=== PATIENT | female | born 1985 | race Caucasian/White ===

== ENCOUNTER 2016-06-25 17:55 | Emergency (ER) | payer OTHER ==
[2016-06-25 18:08] VITALS: BP 115/74; PULSE 77; TEMP 98.1; BMI 28.7
--- NOTE | 2016-06-25 19:21 | PDOC ---
History of Present Illness - General Chief Complaint: Urinary Problem Stated Complaint: UTI Time Seen by Provider: 06/25/16 19:01 History Source: Patient Exam Limitations: No Limitations - History of Present Illness Initial Comments: 06/25/16 19:45 My chief complaint: painful urination, frequency, and blood when wiping this morning after urinating History of present illness: Patient is a 30-year-old female with a history of asthma and frequent urinary tract infections here today complaining of dysuria, frequency, urgency times one and a half weeks with hematuria noted today. Patient denies any back pain, nausea vomiting or fever. Patient denies any vaginal discharge. 06/25/16 19:47 Timing/Duration: intermittent (for 1 1/2 weeks ) Severity: mild Associated Symptoms: reports: other (dysuria, hematuria, frequency, urgency) Past History - Past Medical History Allergies/Adverse Reactions: Allergies Allergy/AdvReac Type Severity Reaction Status Date / Time No Known Allergies Allergy Verified 06/25/16 18:07 Home Medications: Ambulatory Orders Nitrofurantoin Monohyd/M-Cryst [Macrobid -] 100 mg PO BID #13 capsule 06/25/16 Phenazopyridine HCl [Pyridium] 200 mg PO TID #5 tablet 06/25/16 Asthma: Yes Cancer: No Cardiac Disorders: No Diabetes: No HTN: No Seizures: No Thyroid Disease: No - Reproductive History (#): 1 Para: 1 Cervical CA: No Dysfunctional Uterine Bleeding: No (no vagina bleeding today) Ectopic : No Polycystic Ovaries: No Therapeutic (s) & number: No Uterine Fibroids: Yes - Immunization History Immunization Up to Date: Yes - Psycho/Social/Smoking Cessation Hx Anxiety: No Suicidal Ideation: No Smoking Status: No Smoking History: Never smoked Years of Tobacco Use: 0 Have you smoked in the past 12 months: No Number of Cigarettes Smoked Daily: 0 Cigars Per Day: 0 Information on smoking cessation initiated: No Hx Alcohol Use: No Drug/Substance Use Hx: No Substance Use Type: None Hx Substance Use Treatment: No Review of Systems - Review of Systems Able to Perform ROS?: Yes Constitutional: No: Symptoms Reported HEENTM: No: Symptoms Reported Respiratory: No: Symptoms reported Cardiac (ROS): No: Symptoms Reported ABD/GI: No: Symptoms Reported : Yes: Dysuria (1 1/2 weeks ), Frequency, Hematuria (today ), Urgency Musculoskeletal: No: Symptoms Reported Integumentary: No: Symptoms Reported Neurological: No: Symptoms reported *Physical Exam - Vital Signs Last Vital Signs Temp Pulse Resp BP Pulse Ox 98.1 F 77 18 115/74 98 06/25/16 18:06 06/25/16 18:06 06/25/16 18:06 06/25/16 18:06 06/25/16 18:06 - Physical Exam General Appearance: Yes: Appropriately Dressed Respiratory/Chest: positive: Lungs Clear, Normal Breath Sounds. negative: Chest Tender, Respiratory Distress Cardiovascular: positive: Regular Rhythm, Regular Rate, S1, S2 Gastrointestinal/Abdominal: positive: Normal Bowel Sounds, Soft. negative: Tender, Organomegaly, Distended, Guarding, Rebound, Tenderness, Hepatomegaly, Spleenomegaly Musculoskeletal: negative: CVA Tenderness, CVA Tenderness (R), CVA Tenderness (L ) Integumentary: positive: Normal Color Neurologic: positive: Alert, Responsive Medical Decision Making - Medical Decision Making 06/25/16 19:47 Patient is a 30-year-old female with a history of asthma and frequent urinary tract infections here today complaining of dysuria, frequency, urgency times one and a half weeks with hematuria noted today. Patient denies any back pain, nausea vomiting or fever. Patient denies any vaginal discharge. She is sexually active with her having unprotected sex. R/O UTI UTI PLAN: urinalysis urine C & S urine HCG chlamydia/gonorrhea amplification 06/25/16 20:33 results FOR urinalysis and urine hCG still pending 06/25/16 21:10 Laboratory Tests 06/25/16 19:36 Urine Color Straw Urine Appearance Clear Urine pH 6.0 Ur Specific [place] 1.008 Urine Protein Negative Urine Glucose (UA) Negative Urine Ketones Negative Urine Blood 2+ H Urine Nitrite Negative Urine Bilirubin Negative Urine Urobilinogen Negative Ur Leukocyte Esterase 2+ H Urine RBC 34 Urine WBC 59 Ur Epithelial Cells Rare Urine Bacteria Many Hyaline Casts 12 Urine Mucus Rare 06/25/16 21:11 06/25/16 21:17 macrobid 100 mg po now than bid for 7 days pyridium 200 mg po now than tid for 2 days start on 06/26/16 follow up with primary for repeat urinalysis at end of treatment *DC/Admit/Observation/Transfer Diagnosis at time of Disposition: Urinary tract infection Qualifiers: Urinary tract infection type: acute cystitis Hematuria presence: with hematuria Qualified Code(s): N30.01 - Acute cystitis with hematuria - Discharge Dispostion Disposition: HOME Condition at time of disposition: Stable - Referrals Referrals: Reginaldo Tan [Primary Care Provider] - - Patient Instructions Additional Instructions: Drink A lot of cranberry juice Follow-up with your primary care provider for repeat urine test and it end of treatment Call to lab line in 3 days for results of pending labs Return to emergency room if any fever, nausea or vomiting or back pain Patient voiced understanding of discharge instructions and all questions were answered - Post Discharge Activity
[2016-06-25 20:02] LABS: URINE APPEARANCE CLEAR; URINE BILIRUBIN NEGATIVE (NEGATIVE); URINE COLOR STRAW; URINE GLUCOSE (UA) NEGATIVE (NEGATIVE); URINE KETONE NEGATIVE (NEGATIVE); URINE NITRITE NEGATIVE (NEGATIVE); URINE PROTEIN NEGATIVE (NEGATIVE); URINE UROBILINOGEN NEGATIVE E.U./dl (0.2-1.0)
[2016-06-25 20:39] LABS: URINE BLOOD 2+ (NEGATIVE); URINE LEUK ESTERASE 2+ (NEGATIVE)
[2016-06-25 20:44] LABS: URINE BACTERIA MANY /hpf (NONE SEEN); URINE HYALINE CAST 12 /lpf; URINE MUCUS RARE; URINE RBC 34 /hpf (0-3); URINE WBC 59 /hpf (3-5)
[2016-06-25] MEDS ORDERED: NITROFURANTOIN MACROCRYSTAL 50 MG CAPSULE (FP) PO SCH (21:15)
[2016-06-25] MEDS ORDERED: PHENAZOPYRIDINE HCL 100 MG TABLET (FP) PO ONE (21:16)
[2016-06-25] MEDS ORDERED: PHENAZOPYRIDINE HCL 100 MG TABLET (FP) ONE ×2 (21:29→21:30)
[2016-06-25] MEDS ORDERED: NITROFURANTOIN MACROCRYSTAL 50 MG CAPSULE (FP) ONE (21:29)
== END 2016-06-25 21:37 | disposition home or self-care (01) ==
LOC: JERFT 17:55
DX: N30.01 Acute cystitis with hematuria (principal); J45.909 Unspecified asthma, uncomplicated; Z87.440 Personal history of urinary (tract) infections
CPT/HCPCS: 36415; 81003; 81015; 87086; 87491; 87591; 99281-25

== ENCOUNTER 2017-02-12 22:14 | Observation (INO) | payer OTHER ==
[2017-02-12] MEDS ORDERED: ALBUTEROL SO4 2.5/IPRATROPIUM 0.5 INH SOL 3 ML VIAL.NEB. NEB ONE (22:21)
[2017-02-12] MEDS ORDERED: methylPREDNISolone NA SUCC 125 MG/2 ML VIAL IVPB ONE (22:24)
[2017-02-12] MEDS ORDERED: methylPREDNISolone NA SUCC 125 MG/2 ML VIAL ONE (22:29)
[2017-02-12 22:47] LABS: BASOPHIL 0.5 % (0-2.0); EOSINOPHIL 2.1 % (0-4.5); MCH 25.3 pg (25.7-33.7); MCHC 32.2 g/dl (32.0-36.0); MEAN CELL VOLUME 78.6 fl (80-96); MEAN PLT VOLUME 9.5 fl (7.5-11.1); NEUTROPHILS 69.9 % (42.8-82.8); PLATELET COUNT 258 K/MM3 (134-434); RDW 19.6 % (11.6-15.6); WHITE BLOOD COUNT 8.5 K/mm3 (4.0-10.0)
[2017-02-12 23:14] LABS: ANION GAP 11 (8-16); BILIRUBIN,TOTAL 0.3 mg/dL (0.2-1.0); CALCIUM 9.3 mg/dL (8.5-10.1); CO2 25 mmol/L (21-32); CREATININE 0.7 mg/dL (0.55-1.02); GLUCOSE,RANDOM 82 mg/dL (74-106); SGPT/ALT 20 U/L (12-78); TOT PROT 7.7 g/dl (6.4-8.2)
[2017-02-12] MEDS: ALBUTEROL SO4 2.5/IPRATROPIUM 0.5 INH SOL 3 ML VIAL.NEB. NEB SCH ×2 (23:14→23:57)
--- NOTE | 2017-02-12 23:14 | PDOC ---
Attending Attestation - Resident Resident Name: JesusfloryFede - ED Attending Attestation I have performed the following: I have examined & evaluated the patient, The case was reviewed & discussed with the resident, I agree w/resident's findings & plan, Exceptions are as noted - HPI HPI: 02/12/17 23:10 This is a 31 yo F h/o severe asthma previously requiring intubation Pt presents to the ER with severe asthma exacerbation and cough No fevers - Physicial Exam PE: 02/12/17 23:10 On examination: Pt speaking in 3 word sentences inspiratory and expiratory wheezing - Medical Decision Making 02/12/17 23:12 Will give continuous nebs, solumedrol consider CXR Will monitor closely Discharge on nebs and prednisone 02/12/17 23:14 Laboratory Tests 02/12/17 02/12/17 22:38 22:38 WBC 8.5 Hgb 10.6 L Hct 32.8 Plt Count 258 Neutrophils % 69.9 D Lymphocytes % 21.0 D Serum , Qual Negative Discharge Disposition - Diagnosis Asthma exacerbation - Discharge Dispostion Condition at time of disposition: Stable Last Admission D/C Date: 03/10/14 Admit: Yes
[2017-02-12 23:15] LABS: ALK PHOS 74 U/L (45-117)
[2017-02-12 23:26] LABS: MAGNESIUM 2.2 mg/dL (1.8-2.4); SGOT/AST 25 U/L (15-37)
--- NOTE | 2017-02-12 23:44 | PDOC ---
History of Present Illness - General Chief Complaint: Asthma Stated Complaint: WHEEZING/ASTHMA Time Seen by Provider: 02/12/17 22:21 History Source: Patient Exam Limitations: No Limitations - History of Present Illness Initial Comments: 02/12/17 23:28 The patient is a 31F with a PMH of asthma who presents to the ED with an asthma exacerbation. THe patient states that she's had 5 days of asthma symptoms ( wheezing, coughing) with asthma attacks 3-4 x per day. She has been giving herself neublizing treatments and the symptoms return after 2-3 hours. She takes albuterol, symbicort, singulair, and oral prednisone. She has been intubated for an asthma exacerbation. Her last hospitalization was in August at [facility]. She states that her son had a fever a few days ago and she took him to the doctor. She's complaining of a dry cough and chest tightness. Denies fever/ chills. Past History - Past Medical History Allergies/Adverse Reactions: Allergies Allergy/AdvReac Type Severity Reaction Status Date / Time No Known Allergies Allergy Verified 02/12/17 22:19 Home Medications: Ambulatory Orders Albuterol 0.083% Nebulizer Lila [Ventolin 0.083% Nebulizer Soln -] 1 neb NEB Q6H PRN 02/13/17 Budesonide/Formeterol Fumarate [SYMBICORT 160/4.5mcg -] 2 inh PO BID 02/13/17 Montelukast Na [Singulair -] 10 mg PO HS 02/13/17 Prednisone 02/13/17 Asthma: Yes Cancer: No Cardiac Disorders: No Diabetes: No HTN: No Seizures: No Thyroid Disease: No - Reproductive History (#): 1 Para: 1 Cervical CA: No Dysfunctional Uterine Bleeding: No (no vagina bleeding today) Ectopic : No Polycystic Ovaries: No Therapeutic (s) & number: No Uterine Fibroids: Yes - Immunization History Immunization Up to Date: Yes - Psycho/Social/Smoking Cessation Hx Anxiety: No Suicidal Ideation: No Smoking Status: No Smoking History: Never smoked Years of Tobacco Use: 0 Have you smoked in the past 12 months: No Number of Cigarettes Smoked Daily: 0 Cigars Per Day: 0 Hx Alcohol Use: No Drug/Substance Use Hx: No Substance Use Type: None Hx Substance Use Treatment: No Review of Systems - Review of Systems Able to Perform ROS?: Yes Is the patient limited Hungarian proficient: No Constitutional: No: Chills, Fever Respiratory: Yes: Shortness of Breath, Wheezing, Other (dry cough ). No: Productive cough Cardiac (ROS): Yes: Other (chest pressure). No: Chest Pain, Irregular Heart Rate, Palpitations ABD/GI: No: Constipated, Diarrhea, Nausea, Vomiting : No: Burning, Dysuria Neurological: No: Headache, Numbness, Tingling, Weakness *Physical Exam - Vital Signs Last Vital Signs Temp Pulse Resp BP Pulse Ox 74 18 141/74 100 02/12/17 22:17 02/12/17 22:17 02/12/17 22:17 02/12/17 22:17 - Physical Exam General Appearance: Yes: Nourished, Appropriately Dressed, Apparent Distress HEENT: positive: Other (Speaking in incomplete sentences) Respiratory/Chest: positive: Respiratory Distress, Wheezing (b/l in all lung smith). negative: Accessory Muscle Use, Labored Respiration, Rapid RR Cardiovascular: positive: Regular Rhythm, Regular Rate, S1, S2. negative: Diastolic Murmur, Systolic Murmur Gastrointestinal/Abdominal: positive: Flat, Soft. negative: Tender, Distended, Guarding, Rebound Integumentary: positive: Dry, Warm. negative: Clammy, Diaphoresis Neurologic: positive: Fully Oriented, Alert, Normal Mood/Affect, Motor Strength 5/5 Heart Score/ECG Review - ECG Impressions Comment:: 02/12/17 23:59 Normal SR ED Treatment Course - LABORATORY CBC & Chemistry Diagram: 02/13/17 06:10 02/13/17 06:10 - ADDITIONAL ORDERS Additional order review: Laboratory Results 02/12/17 02/12/17 22:38 22:38 Sodium 141 Potassium 4.4 Chloride 105 Carbon Dioxide 25 Anion Gap 11 BUN 11 D Creatinine 0.7 Creat Clearance w eGFR > 60 Random Glucose 82 D Calcium 9.3 Magnesium 2.2 Total Bilirubin 0.3 D AST 25 ALT 20 Alkaline Phosphatase 74 Total Protein 7.7 Albumin 4.0 Serum , Qual Negative 02/12/17 22:38 RBC 4.17 MCV 78.6 L MCHC 32.2 RDW 19.6 H MPV 9.5 Neutrophils % 69.9 D Lymphocytes % 21.0 D Monocytes % 6.5 Eosinophils % 2.1 Basophils % 0.5 - Medications Given in the ED: ED Medications Discontinued Medications Generic Name Dose Route Start Last Admin Trade Name Fer PRN Reason Stop Dose Admin Albuterol/Ipratropium 1 amp 02/12/17 22:21 02/12/17 22:28 Duoneb - NEB 02/12/17 22:22 1 amp ONCE ONE Administration Methylprednisolone Sodium Succinate 125 mg 02/12/17 22:24 02/12/17 22:32 Solu-Medrol - IVPB 02/12/17 22:25 125 mg ONCE ONE Administration Medical Decision Making - Medical Decision Making 02/13/17 00:00 Patient is a 31F with a PMH of asthma who presented with an asthma exacerbation. She was given continuous nebs, solumetrol, and monitored. She is comfortable. Will discuss observation because her last exacerbation, she left the hospital and then came back and was intubated. She also had symptoms return at home every 3-4 hours. Hospitalist microblogged. 02/13/17 00:04 Patient signed out to Dr. De Leon. *DC/Admit/Observation/Transfer Diagnosis at time of Disposition: Asthma exacerbation - Discharge Dispostion Condition at time of disposition: Stable
[2017-02-13] MEDS ORDERED: ALBUTEROL SO4 0.083% IH SOL 2.5 MG/3 ML VIAL.NEB. NEB PRN (01:53)
[2017-02-13] MEDS ORDERED: BENZOCAINE/MENTH/CETYLPYRD CL 1 EACH LOZENGE MM PRN (02:19)
--- NOTE | 2017-02-13 02:19 | HP ---
CHIEF COMPLAINT: Asthma exacerbation PCP: HISTORY OF PRESENT ILLNESS: The patient is a 31 yo f w/ PMH asthma (multiple hospitalizations, intubated once) comes in complaining of wheezing and cough for the past 5 days. The patient was in her usual state of health until 5 days ago when she began to have recurrent episodes of wheezing and cough which were only temporarily relived by her rescue inhaler. The cough is nonproductive. She would use her inhaler 3-4 times per day during this time. She states she takes singulair and prednisone daily and her symptoms are usually controlled. She does not take her symbicort regularly. The patient states that her son had a fever recently, but no other symptoms. She has been to the ER 3 other times this year for similar symptoms. Patient denies waking up at night with asthma symptoms. Peak flow after transfer to floor was 250. Patient denies chest pain, abdominal pain, fever or chills. ER course was notable for: (1) solumedrol 125 (2) duonebs (3) Recent Travel: none PAST MEDICAL HISTORY: -see above PAST SURGICAL HISTORY: -2 Cesarian sections. Social History: Smoking: denies Alcohol: socially Drugs: denies Family History: HTN in father, Breast cancer in 2 first cousins Allergies No Known Allergies Allergy (Verified 02/12/17 22:19) HOME MEDICATIONS: Home Medications Medication Instructions Recorded Nitrofurantoin Monohyd/M-Cryst 100 mg PO BID #13 capsule 06/25/16 [Macrobid -] Phenazopyridine HCl [Pyridium] 200 mg PO TID #5 tablet 06/25/16 REVIEW OF SYSTEMS CONSTITUTIONAL: Absent: fever, chills, diaphoresis, generalized weakness, malaise, loss of appetite, weight change HEENT: Absent: rhinorrhea, nasal congestion, throat pain, throat swelling, difficulty swallowing, mouth swelling, ear pain, eye pain, visual changes CARDIOVASCULAR: Absent: chest pain, syncope, palpitations, irregular heart rate, lightheadedness , peripheral edema RESPIRATORY: Absent: orthopnea, wheezing, stridor, hemoptysis GASTROINTESTINAL: Absent: abdominal pain, abdominal distension, nausea, vomiting, diarrhea, constipation, melena, hematochezia GENITOURINARY: Absent: dysuria, frequency, urgency, hesitancy, hematuria, flank pain, genital pain MUSCULOSKELETAL: Absent: myalgia, arthralgia, joint swelling, back pain, neck pain SKIN: Absent: rash, itching, pallor HEMATOLOGIC/IMMUNOLOGIC: Absent: easy bleeding, easy bruising, lymphadenopathy, frequent infections ENDOCRINE: Absent: unexplained weight gain, unexplained weight loss, heat intolerance, cold intolerance NEUROLOGIC: Absent: headache, focal weakness or paresthesias, dizziness, unsteady gait, seizure, mental status changes, bladder or bowel incontinence PSYCHIATRIC: Absent: anxiety, depression, suicidal or homicidal ideation, hallucinations. PHYSICAL EXAMINATION Vital Signs - 24 hr 02/13/17 01:48 Pulse Rate [ 68 Apical] Blood Pressure 140/86 [Left Arm] GENERAL: Awake, alert, and fully oriented, in no acute distress. HEAD: Normal with no signs of trauma. EYES: extraocular movements intact, sclera anicteric, conjunctiva clear. No lid lag. NECK: Normal range of motion, supple without lymphadenopathy, JVD, or masses. LUNGS: Breath sounds equal, clear to auscultation bilaterally. No wheezes, and no crackles. No accessory muscle use. HEART: Regular rate and rhythm, normal S1 and S2 without murmur, rub or gallop. ABDOMEN: Soft, nontender, not distended, normoactive bowel sounds, no guarding, no rebound. MUSCULOSKELETAL: Normal range of motion at all joints. No bony deformities or tenderness. No CVA tenderness. UPPER EXTREMITIES: 2+ pulses, warm, well-perfused. No cyanosis. No clubbing. No peripheral edema. LOWER EXTREMITIES: 2+ pulses, warm, well-perfused. No calf tenderness. No peripheral edema. NEUROLOGICAL: Cranial nerves II-X intact. Normal speech. Gait not observed. PSYCHIATRIC: Cooperative. Good eye contact. Appropriate mood and affect. SKIN: Warm, dry, normal turgor, no rashes or lesions noted, normal capillary refill. ASSESSMENT/PLAN: 31 yo f w/ PMH asthma with multiple admissions for exacerbation presents to the ED c/o wheezing and cough for 5 days. #acute asthma exacerbation -patient dramatically improved after IV steroids and duonebs -albuterol Q6H standing -singulair 10mg HS -symbicort 160/4.5 BID -prednisone PO 40mg daily -admit to med-surg -cepacol lozenge Q2H PRN cough -AM CBC, CMP, MAG, PHOS -CXR (by by read) without any consolidations, opacities or effusions -monitor for worsening respiratory status #FEN -no indication for fluids at this time -monitor lytes -regular diet #Prophy -SCDs -no GI prophy indicated at this time #dispo -admitted to med-surg for treatment of acute asthma exacerbation Problem List - Problem (1) Asthma exacerbation Code(s): J45.901 - UNSPECIFIED ASTHMA WITH (ACUTE) EXACERBATION (2) Cough Code(s): R05 - COUGH Visit type - Emergency Visit Emergency Visit: Yes ED Registration Date: 02/13/17 Care time: The patient presented to the Emergency Department on the above date and was hospitalized for further evaluation of their emergent condition. - New Patient This patient is new to me today: Yes Date on this admission: 02/13/17 - Critical Care Critical Care patient: No
[2017-02-13 02:21] VITALS: BMI 27.6
[2017-02-13] MEDS: BENZOCAINE/MENTH/CETYLPYRD CL 1 EACH LOZENGE MM PRN ×3 (02:46→21:52)
--- NOTE | 2017-02-13 05:34 | PN ---
Teaching Attending Note Name of Resident: Colton Arellano ATTENDING PHYSICIAN STATEMENT I saw and evaluated the patient. Chart, data, imaging reviewed. I reviewed the resident's note and discussed the case with the resident. I agree with the resident's findings and plan as documented with modifications below. SUBJECTIVE: 31F with a PMH of severe persistent asthma, with hx of intubation in 08/2015, 3 ER visits for asthma this year, c/o shortness of breath, wheezing, and nonproductive cough for the last 5 days. She states that she has not been taking her symbicort regularly and has been skipping doses. Pt states that she takes an unknown dose of prednisone for the last several months. Has been using daily inhaled albuterol. Unknown baseline peakflow. Denied any fevers or sick contacts. Pt s/p solumedrol and nebulizers in ER and feels much better. OBJECTIVE: Last Vital Signs Temp Pulse Resp BP Pulse Ox 98 F 73 20 129/73 100 02/13/17 02:16 02/13/17 02:16 02/13/17 02:16 02/13/17 02:02/13/17 02:13 General - NAD , aaox3 , comfortable, speaks in full sentences, nonproductive cough HEENT - no scleral icterus, no pharyngeal erythema Neck -supple, no masses CV- s1+s2+ RRR Chest - CTA b/l, no wheezing, rales, rhonchi Neuro- follows commands, answers questions answers questions and follows commands Abnormal Lab Results 02/12/17 22:38 Hgb 10.6 L MCV 78.6 L MCH 25.3 L RDW 19.6 H CXR -no consolidations seen ASSESSMENT AND PLAN: #Asthma exacerbation- much improved after methylprednisone and nebulizers -serial peak flow meter readings -prednisone 40mg daily -call PCP and find out home prednisone dose -duonebs q6hrs -symbicort inhaler bid -respiratory watch -supplemental 02 -counseled on proper medication use #Anemia -microcytic -ferritin -iron saturation, TIMC -vitamin b12 #Diet -regular diet #DVT ppx -SCDs
[2017-02-13] MEDS: ALBUTEROL SO4 0.083% IH SOL 2.5 MG/3 ML VIAL.NEB. NEB SCH ×4 (07:04→23:47)
[2017-02-13 07:30] LABS: BASOPHIL 0.1 % (0-2.0); MCH 25.4 pg (25.7-33.7); MCHC 32.4 g/dl (32.0-36.0); MEAN CELL VOLUME 78.5 fl (80-96); MEAN PLT VOLUME 10.2 fl (7.5-11.1); NEUTROPHILS 94.7 % (42.8-82.8); PLATELET COUNT 243 K/MM3 (134-434); RDW 20.3 % (11.6-15.6); WHITE BLOOD COUNT 8.5 K/mm3 (4.0-10.0)
[2017-02-13 08:00] LABS: BILIRUBIN,TOTAL 0.3 mg/dL (0.2-1.0); CREATININE 0.7 mg/dL (0.55-1.02); PHOSPHOROUS 2.7 mg/dL (2.5-4.9); SGOT/AST 15 U/L (15-37); SGPT/ALT 18 U/L (12-78); TOT PROT 7.6 g/dl (6.4-8.2)
[2017-02-13 08:03] LABS: ALBUMIN 3.7 g/dl (3.4-5.0); ALK PHOS 65 U/L (45-117); ANION GAP 12 (8-16); CALCIUM 8.8 mg/dL (8.5-10.1); CO2 23 mmol/L (21-32); FERRITIN 4.326 ng/ml (6.9-282.5); GLUCOSE,RANDOM 159 mg/dL (74-106); MAGNESIUM 2.3 mg/dL (1.8-2.4)
[2017-02-13] MEDS ORDERED: methylPREDNISolone NA SUCC 40 MG/1 ML VIAL IVPB SCH (10:00)
[2017-02-13] MEDS ORDERED: BUDESONIDE/FORMETEROL FUMARATE 80/4.5 mcg INHALER IH SCH (10:00)
[2017-02-13] MEDS: BUDESONIDE/FORMETEROL FUMARATE 160/4.5 mcg INHALER IH SCH ×2 (10:42→21:51)
--- NOTE | 2017-02-13 17:52 | HOSP ---
Subjective - Review of Symptoms Subjective: Patient seen and examined. She still feels chest and throat tightness. Her voice is strained. Physical Examination Vital Signs: Vital Signs Temperature 98.5 F 02/13/17 13:47 Pulse Rate 82 02/13/17 13:47 Respiratory Rate 18 02/13/17 13:47 Blood Pressure 110/43 02/13/17 13:47 O2 Sat by Pulse Oximetry (%) 99 02/13/17 14:12 Constitutional: Yes: Calm HENT: Yes: WNL Cardiovascular: Yes: Regular Rate and Rhythm, S1, S2 Respiratory: Yes: Cough, Other (scattered rhonchi, no wheezing, no sob,) Gastrointestinal: Yes: Normal Bowel Sounds, Soft Extremities: Yes: WNL Edema: No Neurological: Yes: Alert, Oriented Labs: CBC, BMP 02/13/17 06:10 02/13/17 06:10 Hospitalist Encounter Assessment: Assessment: 31 year old female admitted with asthma exacerbation Plan: 1. Acute asthma exacerbation - Continued chest and neck tightness - Start solumedrol 40mg q8 x24 hrs - Start Azithromycin 500mg daily x5 days - Reassess in AM, possibly dc with medrol taper and abx
[2017-02-13] MEDS: methylPREDNISolone NA SUCC 40 MG/1 ML VIAL IVPB SCH (18:46)
[2017-02-13] MEDS ORDERED: PT OWN MED DRAWER 7, Y5N ONE (21:10)
[2017-02-13] MEDS ORDERED: guaiFENesin 200 MG/10 ML 10 ML UNIT-DOSE CUPS PO PRN (21:39)
[2017-02-13] MEDS ORDERED: MONTELUKAST NA 10 MG TABLET PO SCH ×2 (22:00)
[2017-02-13] MEDS ORDERED: BUDESONIDE/FORMETEROL FUMARATE 160/4.5 mcg INHALER IH SCH (22:00)
[2017-02-13] MEDS: AZITHROMYCIN 250 MG TABLET PO SCH (22:27)
[2017-02-14] MEDS: methylPREDNISolone NA SUCC 40 MG/1 ML VIAL IVPB SCH ×2 (01:26→10:25)
[2017-02-14] MEDS: ALBUTEROL SO4 0.083% IH SOL 2.5 MG/3 ML VIAL.NEB. NEB SCH (06:01)
[2017-02-14 06:07] LABS: SERUM IRON 19 ug/dL (27-159); TOTAL IRON BINDING CAPACITY 424 ug/dL (250-450); UIBC 405 ug/dL (131-425)
[2017-02-14] MEDS: AZITHROMYCIN 250 MG TABLET PO SCH (10:24)
[2017-02-14] MEDS: BUDESONIDE/FORMETEROL FUMARATE 160/4.5 mcg INHALER IH SCH (10:24)
--- NOTE | 2017-02-14 12:06 | CON.PULM ---
Consult Consult Specialty:: PULMONARY Referred by:: TRACIE Schulte Reason for Consultation:: asthma exacerbation - History of Present Illness Chief Complaint: shortness of breath History of Present Illness: 31yo female with h/o asthma who was admitted with worsening shortness of breath without improvement with nebulizers x 5 days. She reports wheezing, chest tightness with a nonproductive cough. Reports compliance with her inhaler regimen. She was diagnosed with asthma as a child, has been hospitalized multiple times, most recently last year and has been intubated once. She does not know her best peak flow. Her triggers include dust, cleaning chemicals, exercise, pets. Has been allergy tested. Maintained on symbicort, singulair, albuterol at home. Has not been on prednisone since August. - History Source History Provided By: Patient, Medical Record Limitations to Obtaining History: No Limitations - Past Medical History Pulmonary: Yes: Asthma ...LMP: 02/13/17 - Past Surgical History Past Surgical History: Yes: - Alcohol/Substance Use Hx Alcohol Use: No - Smoking History Smoking history: Never smoked Have you smoked in the past 12 months: No Aproximately how many cigarettes per day: 0 - Social History ADL: Independent History of Recent Travel: No Home Medications - Allergies Allergies/Adverse Reactions: Allergies Allergy/AdvReac Type Severity Reaction Status Date / Time No Known Allergies Allergy Verified 02/12/17 22:19 - Home Medications Home Medications: Ambulatory Orders Albuterol 0.083% Nebulizer Lila [Ventolin 0.083% Nebulizer Soln -] 1 neb NEB Q6H PRN 02/13/17 Budesonide/Formeterol Fumarate [SYMBICORT 160/4.5mcg -] 2 inh PO BID 02/13/17 Montelukast Na [Singulair -] 10 mg PO HS 02/13/17 Prednisone 02/13/17 Review of Systems - Review of Systems Constitutional: denies: Chills, Fever Eyes: denies: Recent Change in Vision HENT: denies: Nasal Congestion, Throat Pain Neck: denies: Stiffness, Tenderness Cardiovascular: reports: Shortness of Breath. denies: Chest Pain, Edema, Palpitations Respiratory: reports: Cough, Exercise Intolerance, SOB, SOB on Exertion, Wheezing. denies: Hemoptysis Gastrointestinal: denies: Abdominal Pain, Nausea, Vomiting Genitourinary: denies: Dysuria, Hematuria Neurological: denies: Dizziness, Headache Physical Exam Vital Sings: Vital Signs Temperature 98.2 F 02/14/17 10:21 Pulse Rate 79 02/14/17 10:21 Respiratory Rate 18 02/14/17 10:21 Blood Pressure 111/64 02/14/17 10:21 O2 Sat by Pulse Oximetry (%) 96 02/14/17 09:58 Constitutional: Yes: Calm Eyes: Yes: Conjunctiva Clear, EOM Intact HENT: Yes: Atraumatic, Normocephalic Neck: Yes: Supple, Trachea Midline Cardiovascular: Yes: Regular Rate and Rhythm Respiratory: Yes: Regular, CTA Bilaterally. No: Wheezes ...Clubbing: No Gastrointestinal: Yes: Normal Bowel Sounds, Soft. No: Tenderness Edema: No Neurological: Yes: Alert, Oriented Labs: CBC, BMP 02/13/17 06:10 02/13/17 06:10 Imaging - Results Chest X-ray: Report Reviewed, Image Reviewed (no infiltrates) Problem List - Problems (1) Asthma exacerbation Code(s): J45.901 - UNSPECIFIED ASTHMA WITH (ACUTE) EXACERBATION Assessment/Plan - can change steroids to PO prednisone 40mg daily x 5 more days - can discharge on spiriva daily in addition to her regimen of symbicort 160/ 4.5mcg 2puffs BID, singulair nightly and albuterol as needed - instructed her to monitor her peak flow even when well to document her best - should get CBC with diff, IgE level and allergy testing as outpt when off steroids to see if she will qualify for additional treatment if not improved on above - outpt PFTs - can be discharged from pulmonary standpoint Thank you for this consult Gagandeep [place] MD
--- NOTE | 2017-02-14 12:44 | DS ---
Physical Exam: SUBJECTIVE: Patient seen and examined at the bedside. She denies shortness of breath or chest pain. She is able to speak in full sentences without any shortness of breath. States she feels well and denies any discomfort. She states she does not have a precipitate washer outpatient, and requesting a referral here. OBJECTIVE: No wheezing on exam, comfortable in on room Pre and post oxygen stable with ambulation, no need for home oxygen Vital Signs Period Temp Pulse Resp BP Sys/Powell Pulse Ox Last 24 Hr 97.5 F-98.5 F 60-94 18-20 107-127/43-73 96-100 PHYSICAL EXAM GENERAL: The patient is awake, alert, and fully oriented, in no acute distress. HEAD: Normal with no signs of trauma. EYES: PERRL, extraocular movements intact, sclera anicteric, conjunctiva clear. ENT: Ears normal, nares patent, oropharynx clear without exudates, moist mucous membranes. NECK: Trachea midline, full range of motion, supple. LUNGS: Breath sounds equal, clear to auscultation bilaterally, no wheezes, no crackles, no accessory muscle use. HEART: Regular rate and rhythm, S1, S2 without murmur, rub or gallop. ABDOMEN: Soft, nontender, nondistended, normoactive bowel sounds, no guarding, no rebound, no hepatosplenomegaly, no masses. EXTREMITIES: 2+ pulses, warm, well-perfused, no edema. NEUROLOGICAL: Normal speech, gait not observed. PSYCH: Normal mood, normal affect. SKIN: Warm, dry, normal turgor, no rashes or lesions noted. LABS Laboratory Results - last 24 hr 02/13/17 10:00 Iron 19 L TIBC 424 Iron Saturation 4 L HOSPITAL COURSE: Date of Admission:02/13/17 Date of Discharge: 02/14/17 Patient is a 31 yo female with a significant past medical history of asthma with multiple hospitalization and intubation in the past. She came in to the hospital complaining of wheezing and cough for the past 5 days. She is under observation for exacerbation of asthma. Pulmonary: Asthma exacerbation - acute on chronic A/P: Patient seen by precipitate washer prior to d/c, agrees to follow up with Dr. Woods outpatient She has clinically improved, denies any shortness of breath, able to ambulate without any respiratory distress or shortness of breath. She is able to speak in full sentences. Will discharge with Prednisone 40mg daily for 5 more days Spiriva daily in addition to symbicort 160/4.5mcg 2puffs twice per day Singulair nightly and albuterol as needed Monitor peak flow Pulmonary follow up within one week, patient in agreement. Hematology: Iron deficiency anemia A/P: started on Ferrous sulfate 325 daily outpatient follow up with PCP Disposition: Discharge home without pulmonary follow up. Full code. Minutes to complete discharge: 60 Discharge Summary Reason For Visit: EXACERBATION OF ASTHMA Current Active Problems Asthma exacerbation (Acute) Condition: Stable - Instructions Diet, Activity, Other Instructions: Ms Ulloa: You were hospitalized for asthma exacerbation. You will be sent home with the following: Prednisone 40mg daily for 5 more days Spiriva daily in addition to symbicort 160/4.5mcg 2puffs twice per day Singulair nightly and albuterol as needed Monitor your peak flow even when you are well to document your best Please see your primary care physician so that you can get lab work (CBC, IgE and allerty testing when you are off the steriods) to see if you quality for additional treatment If you have any questions, please call me. Amarilys Schulte NP [facility] @ [facility] [phone] Referrals: Neelima Noonan NP [Non Staff, Medical] - Kendrick Woods MD [Staff Physician] - Disposition: HOME - Home Medications Comprehensive Discharge Medication List: Ambulatory Orders Albuterol 0.083% Nebulizer Lila [Ventolin 0.083% Nebulizer Soln -] 1 neb NEB Q6H PRN 02/13/17 Budesonide/Formeterol Fumarate [SYMBICORT 160/4.5mcg -] 2 inh PO BID 02/13/17 Montelukast Na [Singulair -] 10 mg PO HS 02/13/17 Prednisone 02/13/17 This patient is new to me today: Yes Date on this admission: 02/14/17 Emergency Visit: Yes ED Registration Date: 02/13/17 Care time: The patient presented to the Emergency Department on the above date and was hospitalized for further evaluation of their emergent condition. Critical Care patient: No - Discharge Referral Referred to [facility] No
[2017-02-14] MEDS ORDERED: FERROUS SO4 325 MG TABLET (FP) PO SCH (12:45)
[2017-02-14 14:01] VITALS: BP 107/62; PULSE 62; TEMP 98.4
--- NOTE | 2017-02-14 16:35 | EKG ---
Test Reason : Blood Pressure : / mmHG Vent. Rate : 071 BPM Atrial Rate : 071 BPM P-R Int : 142 ms QRS Dur : 090 ms QT Int : 406 ms P-R-T Axes : 047 056 037 degrees QTc Int : 441 ms NORMAL SINUS RHYTHM RSR' OR QR PATTERN IN V1 SUGGESTS RIGHT VENTRICULAR CONDUCTION DELAY BORDERLINE ECG NO PREVIOUS ECGS AVAILABLE Confirmed by SUKH RUELAS MD ([id number]) on 02/14/2017 4:35:03 PM Referred By: Confirmed By:SUKH RUELAS MD
[2017-02-15 08:10] LABS: TRANSFERRIN 385 mg/dL (200-370)
== END 2017-02-14 14:42 | disposition home or self-care (01) ==
LOC: JER 22:14 → JERBED 02-13 00:38 → UNDOADMOB 02-13 00:38 → OBSVTOIN 02-13 01:53 → JERBED 02-13 01:53 → UNDOADMOB 02-13 01:53 → INTOOBSV 02-13 01:53 → JERBED 02-13 01:57 → J7W 02-13 01:57 → OBSVTOIN 02-14 01:53 → INTOOBSV 02-14 01:53
PROVIDERS: ADMIT Internal Medicine; ATTEND Nurse Practitioner Family
PROC: 3E0333Z Introduction of Anti-inflammatory into Peripheral Vein, Percutaneous Approach (ICD-10-PCS; principal; 2017-02-12)
PROC: 3E0F7GC Introduction of Other Therapeutic Substance into Respiratory Tract, Via Natural or Artificial Opening (ICD-10-PCS; 2017-02-12)
PROC: 3E0F7GC Introduction of Other Therapeutic Substance into Respiratory Tract, Via Natural or Artificial Opening (ICD-10-PCS; 2017-02-12)
PROC: 3E0F7GC Introduction of Other Therapeutic Substance into Respiratory Tract, Via Natural or Artificial Opening (ICD-10-PCS; 2017-02-13)
DX: J45.901 Unspecified asthma with (acute) exacerbation (principal); D50.9 Iron deficiency anemia, unspecified
CPT/HCPCS: 36415; 71020-TC; 80053; 82607; 82728; 83540; 83550; 83735; 84100; 84466; 84703; 85025; 93005; 93010; 94640; 94761; 99284-25; G0378

== ENCOUNTER 2017-04-20 00:19 | Emergency (ER) | payer OTHER ==
[2017-04-20] MEDS ORDERED: predniSONE 20 MG TABLET (UD) PO ONE (01:09)
[2017-04-20] MEDS ORDERED: SILVER SULFADIAZINE 1% TOP CREAM 50 GM JAR TP ONE ×2 (01:09→01:15)
[2017-04-20] MEDS ORDERED: ALBUTEROL SO4 0.083% IH SOL 2.5 MG/3 ML VIAL.NEB. NEB ONE (01:09)
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
[2017-04-20] MEDS ORDERED: predniSONE 10 MG TABLET (UD) ONE (01:15)
[2017-04-20 01:53] VITALS: BP 115/56; PULSE 82; TEMP 98.7; BMI 30.4
== END 2017-04-20 02:03 | disposition home or self-care (01) ==
LOC: JER 00:19
PROC: 2W2FX4Z Dressing of Left Hand using Bandage (ICD-10-PCS; principal; 2017-04-20)
PROC: 3E0F7GC Introduction of Other Therapeutic Substance into Respiratory Tract, Via Natural or Artificial Opening (ICD-10-PCS; 2017-04-20)
DX: J45.901 Unspecified asthma with (acute) exacerbation (principal); T23.102A Burn of first degree of left hand, unspecified site, initial encounter; X11.8XXA Contact with other hot tap-water, initial encounter; Y93.G3 Activity, cooking and baking; Y92.030 Kitchen in apartment as the place of occurrence of the external cause
CPT/HCPCS: 99281-25

== ENCOUNTER 2017-11-16 01:50 | Emergency (ER) | payer SELFPAY ==
[2017-11-16 02:03] VITALS: BP 127/58; PULSE 93; TEMP 98.3; BMI 22.0
[2017-11-16] MEDS ORDERED: ACETAMINOPHEN 325 MG TABLET (FP) PO ONE (02:46)
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
[2017-11-16] MEDS ORDERED: ACETAMINOPHEN 325 MG TABLET (FP) ONE (02:51)
[2017-11-16] MEDS ORDERED: DIPHTH,PERTUSS(ACELL),TET VAC 0.5 ML VIAL IM ONE (02:51)
== END 2017-11-16 03:43 | disposition home or self-care (01) ==
LOC: JER 01:50
PROC: 3E0234Z Introduction of Serum, Toxoid and Vaccine into Muscle, Percutaneous Approach (ICD-10-PCS; principal; 2017-11-16)
DX: S09.90XA Unspecified injury of head, initial encounter (principal); Y04.2XXA Assault by strike against or bumped into by another person, initial encounter; Y93.89 Activity, other specified; Y92.9 Unspecified place or not applicable; Z33.1 Pregnant state, incidental
CPT/HCPCS: 84703; 99281-25

== ENCOUNTER 2018-07-21 05:45 | Inpatient (IN) | payer OTHER ==
[2018-07-21] MEDS: ELECTROLYTE-148 SOLN 1,000 ML IV SCH (06:45)
[2018-07-21] MEDS ORDERED: CITRIC ACID/SODIUM CITRATE 30 ML UNIT-DOSE CUP PO ONE (06:48)
[2018-07-21 06:52] VITALS: BMI 30.7
--- NOTE | 2018-07-21 06:55 | HP ---
Past Medical History - Primary Care Physician PCP:: Louie Hogan - Admission Chief Complaint: 39 weeks, previous c/s , request of repeat c/s History of Present Illness: 32 yo f 39 weeks, with 2 previous c/s, requesting repeat c/s, FHR cat 1 , no contraction, cx clp, vx-3 , mi, risks of repeat c/s has discussed with patient aware risks of bleeding, injury to bowel, bladder, surrounding tissue, infection, anesthesia risks, declined BTL, risks associated with future discussed as well History Source: Patient Limitations to Obtaining History: No Limitations - Past Medical History Pulmonary: Yes: Asthma ...: 3 ...Para: 2 ...Term: 2 ... Weeks Gestation by Dates: 39 ...EDC by [facility]: 07/27/18 - Past Surgical History Past Surgical History: Yes: Hx Myomectomy: No Hx Transabdominal Cerclage: No - Smoking History Smoking history: Never smoked Have you smoked in the past 12 months: No Aproximately how many cigarettes per day: 0 - Alcohol/Substance Use Hx Alcohol Use: No - Social History ADL: Independent History of Recent Travel: No Home Medications - Allergies Allergies/Adverse Reactions: Allergies Allergy/AdvReac Type Severity Reaction Status Date / Time No Known Allergies Allergy Verified 11/16/17 01:54 - Home Medications Home Medications: Ambulatory Orders Montelukast Na [Singulair -] 10 mg PO HS 02/13/17 Albuterol 0.083% Nebulizer Lila [Ventolin 0.083% Nebulizer Soln -] 1 amp NEB Q4H PRN #0 amp 02/14/17 Budesonide/Formeterol Fumarate [SYMBICORT 160/4.5mcg -] 2 puff IH BID inhaler 02/14/17 Ferrous Sulfate [Feosol] 325 mg PO DAILY #30 tab 02/14/17 Tiotropium [place] [Spiriva] 1 inh PO DAILY #1 inhaler 02/14/17 Review of Systems - Review of Systems Constitutional: reports: No Symptoms Eyes: reports: No Symptoms HENT: reports: No Symptoms Neck: reports: No Symptoms Cardiovascular: reports: No Symptoms Respiratory: reports: No Symptoms Gastrointestinal: reports: No Symptoms Genitourinary: reports: Frequency Breasts: reports: No Symptoms Reported Musculoskeletal: reports: Back Pain, Joint Pain Integumentary: reports: No Symptoms Neurological: reports: No Symptoms Endocrine: reports: No Symptoms Hematology/Lymphatic: reports: No Symptoms Physical Exam - Maternity Constitutional: Yes: Well Nourished, No Distress, Calm Eyes: Yes: WNL, Conjunctiva Clear, EOM Intact HENT: Yes: WNL, Atraumatic, Normocephalic Neck: Yes: WNL, Supple, Trachea Midline Cardiovascular: Yes: WNL, Regular Rate and Rhythm Breast(s): Yes: WNL - Abdominal Exam/OB Fundal Height: 40 Number of Fetuses: Single Presentation: Vertex Contractions: No Intensity: Unaware Monitor Mode: External Heart Rate (range): 142 Heart Rate Location: [facility] Category: I Accelerations: Uniform Decelerations: None - Vaginal Exam/OB Vaginal Bleediing: No Speculum Exam: No Dilatation (cm): 0 Effacement (%): 0 Amniotic Membrane Status: Intact Presentation: Vertex/Position Station: -3 - Physical Exam Musculoskeletal: Yes: WNL Extremities: Yes: WNL Edema: LLE: Trace, RLE: Trace Deep Tendon Reflex Grade: Normal +2 ...Motor Strength: WNL Psychiatric: Yes: WNL Hemorrhage Risk Assessment - Risk Factors Medium Risk Factors: Yes: Prior , uterine surgery,or multiple laparotomies Risk Score: 1 Risk Level: Medium Risk Problem List - Problems (1) with 39 completed weeks gestation Code(s): Z3A.39 - 39 WEEKS GESTATION OF (2) Previous section complicating Code(s): O34.219 - MATERNAL CARE FOR UNSP TYPE SCAR FROM PREVIOUS DEL Assessment/Plan repeat c/s , risks discussed
[2018-07-21] MEDS: DEXTROSE 5%-LACTATED RINGERS 1,000 ML IV SCH (07:00)
[2018-07-21] MEDS ORDERED: morphine SULFATE/Preservative Free 0.5 MG/ML (1cc Syringe) ONE (07:16)
[2018-07-21] MEDS ORDERED: METHYLERGONOVINE MALEATE 0.2 MG/1 ML AMP IM PRN (07:40)
[2018-07-21] MEDS ORDERED: BENZOCAINE 28 GM HEMORRHOIDAL OINTMENT PR PRN (07:40)
[2018-07-21] MEDS ORDERED: BENZOCAINE 20% 57 GM BOTTLE TP PRN (07:40)
[2018-07-21] MEDS ORDERED: diphenhydrAMINE HCL 25 MG CAPSULE (FP) PO PRN (07:40)
[2018-07-21] MEDS ORDERED: WITCH HAZEL 50% (TUCKS) 40 PAD/JAR PAD TP PRN (07:40)
[2018-07-21] MEDS ORDERED: OXYTOCIN 20 UNITS in 0.9% NS 20 UNIT/1,000 ML INFUS.BAG IV SCH (07:45)
[2018-07-21] MEDS: CEFAZOLIN 1 GM/D5W 1 GM/50 ML BAG IVPB SCH ×2 (08:05→17:08)
[2018-07-21] MEDS ORDERED: ePHEDrine SULFATE 50 MG/1 ML AMPULE ONE (08:07)
[2018-07-21] MEDS ORDERED: KETOROLAC TROMETHAMINE 30 MG/1 ML VIAL ONE (08:16)
[2018-07-21] MEDS ORDERED: OXYTOCIN 10 UNITS/ML VIAL ONE (08:16)
[2018-07-21] MEDS ORDERED: ceFAZolin SODIUM 1 GM VIAL ONE (08:16)
[2018-07-21] MEDS ORDERED: SODIUM CHLORIDE 0.9% P/F 10 ML VIAL IJ ONE (08:16)
--- NOTE | 2018-07-21 09:09 | SURG ---
Surgery Site Auditor Note Site Auditor: Gabby Moore PA-C Date of Service: 07/21/18 Diagnosis: 39 weeks gestation Procedure: Repeat I was present for the entirety of the operative procedure. For further detail, please refer to operative report. Visit type - Case Type Case Type: Scheduled - Emergency Emergency Visit: No - New patient This patient is new to me today: Yes Date on this admission: 07/21/18
[2018-07-21] MEDS: BUDESONIDE/FORMETEROL FUMARATE 160/4.5 mcg INHALER IH SCH ×2 (10:00→21:56)
[2018-07-21] MEDS ORDERED: diphenhydrAMINE HCL 12.5 MG/5 ML UNIT-DOSE CUPS PO PRN (11:20)
[2018-07-21] MEDS: IBUPROFEN 800 MG/8 ML IJ IVPB PRN (18:19)
[2018-07-21] MEDS: MONTELUKAST NA 10 MG TABLET PO SCH (21:55)
[2018-07-22] MEDS: IBUPROFEN 800 MG/8 ML IJ IVPB PRN (01:55)
--- NOTE | 2018-07-22 06:48 | OP ---
DATE OF OPERATION: 07/21/2018 PREOPERATIVE DIAGNOSIS: 39 weeks, 2 previous sections, request for repeat section. POSTOPERATIVE DIAGNOSIS: 39 weeks, 2 previous sections, request for repeat section. PROCEDURE: Repeat low segment transverse section. SURGEON: Violette Hogan MD GRAINING OPERATOR: ARNULFO Basilio ANESTHESIA: Spinal. ESTIMATED BLOOD LOSS: 500 mL. FINDINGS: A live baby girl 9, 9. ROT position. Cord around the neck x1. DESCRIPTION OF PROCEDURE: The patient was taken to the operating room under adequate spinal anesthesia. Abdomen and perineum were prepped and draped. Pfannenstiel abdominal skin incision was made over the previous incision. Abdominal wall was cut layer by layer until the peritoneum was exposed and incised. Upon entering the abdominal cavity, lower uterine segment was identified. There were some peritoneal adhesions, which were lysed. Bladder was pushed down. A low transverse uterine incision was made. Incision was carried laterally. Amniotic sac was entered. Clear fluid. Head delivered. Nasopharynx was suctioned. Live baby girl was delivered without any difficulty. There was a cord around the neck x1, which was reduced after delivery of the body. Placenta was delivered manually. Uterine cavity was cleaned of all remaining tissue. Uterine incision was closed in 2 layers, the first layer with 0 Biosyn continuous suture, the second layer with 0 Biosyn imbricating the 1st layer. Bladder flap was closed with 0 Biosyn continuous suture. Both tubes and ovaries were checked and were normal. No active bleeding was seen. All of the lap pad, sponge, and instrument counts were correct. Peritoneum was closed with 0 Biosyn continuous suture. Muscles were brought together with interrupted sutures of 0 Biosyn. Fascia was closed with 0 Biosyn continuous suture, subcutaneous fat interrupted suture of 0 Biosyn, and the skin was closed with 3-0 Vicryl continuous subcuticular suture. The patient tolerated the procedure well and left the OR in good condition. VIOLETTE HOGAN M.D. [id number]
[2018-07-22] MEDS ORDERED: BISACODYL 10 MG SUPP.RECT RC PRN (07:40)
[2018-07-22] MEDS ORDERED: ALBUTEROL SO4 8 GM HFA INHALER IH PRN (08:23)
--- NOTE | 2018-07-22 08:31 | PN ---
Post Progress Note - Subjective Subjective: c/o pain scale 4/10 not voided yet after pineda was taken out Post Day: 1 Type of Delivery: Repeat C/S Vital Signs: Vital Signs Temperature 98.2 F 07/22/18 08:13 Pulse Rate 52 L 07/22/18 08:13 Respiratory Rate 20 07/22/18 08:13 Blood Pressure 106/55 L 07/22/18 08:13 O2 Sat by Pulse Oximetry (%) 98 07/21/18 13:00 Breast Exam: Yes: Soft, Other (BF ). No: Engorged Uterus: Yes: Fundus Firm, Fundus below umbilicus, Non-tender Incision: Yes: Dressing dry and intact. No: Oozing Abdomen/GI: Yes: Abdomen soft (BS active ), Passing flatus, Tolerating PO ( clear fluids ). No: Abdominal Distention, Tender Lochia: Yes: Rubra Lochia, amount: Moderate Extremities: Yes: Calves non-tender Perineum: Yes: Intact Activity: Other (not oob yet ) Other Findings, Remarks: RS cta , no wheezing output 750 ml Problem List - Problems (1) delivery delivered Code(s): O82 - ENCOUNTER FOR DELIVERY WITHOUT INDICATION (2) Encounter for care and examination after delivery Code(s): Z39.2 - ENCOUNTER FOR ROUTINE FOLLOW-UP Assessment/Plan cbc post op pending encourage po fluids, ambulation & deep breathing ex
--- NOTE | 2018-07-22 08:46 | PN ---
Progress Note (short form) - Note Progress Note: Anesthesia/Pain Pt seen and examined S:Alert and awake comfortable O: Vital Signs Temperature 98.2 F 07/22/18 08:13 Pulse Rate 52 L 07/22/18 08:13 Respiratory Rate 20 07/22/18 08:13 Blood Pressure 106/55 L 07/22/18 08:13 O2 Sat by Pulse Oximetry (%) 98 07/21/18 13:00 A/P: s/p c section Doing well post op Continue current care Wilver Turcios MD
[2018-07-22] MEDS: SIMETHICONE 80 MG TAB.CHEW (FP) PO PRN ×4 (09:01→22:46)
[2018-07-22] MEDS: oxyCODONE HCL 5 MG TABLET PO PRN ×4 (09:01→22:45)
[2018-07-22] MEDS: ACETAMINOPHEN 325 MG TABLET (FP) PO PRN ×4 (09:01→22:46)
[2018-07-22] MEDS: ENOXAPARIN NA (PORCINE) 40 MG/0.4 ML DISP.SYRIN SQ SCH (09:02)
[2018-07-22] MEDS: BUDESONIDE/FORMETEROL FUMARATE 160/4.5 mcg INHALER IH SCH ×2 (09:02→22:10)
[2018-07-22 10:10] LABS: BASO % 0.3 % (0-2.0); EOS % 1.6 % (0-4.5); HEMOGLOBIN 12.9 GM/dL (10.7-15.3); MCH 30.5 pg (25.7-33.7); MCHC 33.8 g/dl (32.0-36.0); MEAN CELL VOLUME 90.3 fl (80-96); MEAN PLT VOLUME 10.6 fl (7.5-11.1); NEUT % 69.1 % (42.8-82.8); PLATELET COUNT 132 K/MM3 (134-434); RBC 4.21 M/mm3 (3.60-5.2); RDW 17.4 % (11.6-15.6); WHITE BLOOD COUNT 9.4 K/mm3 (4.0-10.0)
[2018-07-22] MEDS: IBUPROFEN 600 MG TABLET (FP) PO PRN (15:44)
[2018-07-22] MEDS: LACTATED RINGERS SOLUTION 1,000 ML IV SCH (20:11)
[2018-07-22] MEDS: ELECTROLYTE-148 SOLN 1,000 ML IV SCH (20:12)
[2018-07-22] MEDS: OXYTOCIN 20 UNITS in 0.9% NS 20 UNIT/1,000 ML INFUS.BAG IV SCH (20:12)
[2018-07-22] MEDS: DEXTROSE 5%-LACTATED RINGERS 1,000 ML IV SCH (20:12)
[2018-07-22] MEDS: MONTELUKAST NA 10 MG TABLET PO SCH (22:10)
[2018-07-23] MEDS: IBUPROFEN 600 MG TABLET (FP) PO PRN ×3 (00:38→20:08)
[2018-07-23] MEDS: ACETAMINOPHEN 325 MG TABLET (FP) PO PRN ×2 (06:47→12:40)
[2018-07-23] MEDS: SIMETHICONE 80 MG TAB.CHEW (FP) PO PRN ×3 (06:47→20:08)
[2018-07-23] MEDS: oxyCODONE HCL 5 MG TABLET PO PRN ×3 (06:48→20:08)
--- NOTE | 2018-07-23 08:51 | PN ---
Post Progress Note - Subjective Subjective: c/o pain scale max 9/10 voiding without difficulty . bm not done c/o nausea , as per nurse she requests 2 tabs of oxycodone for pain Post Day: 2 Type of Delivery: Repeat C/S Vital Signs: Vital Signs Temperature 98.2 F 07/23/18 07:59 Pulse Rate 56 L 07/23/18 07:59 Respiratory Rate 20 07/23/18 07:59 Blood Pressure 117/78 07/23/18 07:59 O2 Sat by Pulse Oximetry (%) 98 07/21/18 13:00 Breast Exam: Yes: Soft, Other (breast & bottle feeding ). No: Engorged Uterus: Yes: Fundus Firm, Fundus below umbilicus, Non-tender Incision: Yes: Sutures intact (steri strips ). No: Redness, Oozing Abdomen/GI: Yes: Abdomen soft, Passing flatus, Tolerating PO (diet). No: Abdominal Distention, Tender Lochia: Yes: Rubra Lochia, amount: Moderate Extremities: Yes: Calves non-tender Perineum: Yes: Intact Activity: Ambulating - Labs Labs: CBC WBC 9.4 K/mm3 (4.0-10.0) 07/22/18 08:00 RBC 4.21 M/mm3 (3.60-5.2) 07/22/18 08:00 Hgb 12.9 GM/dL (10.7-15.3) 07/22/18 08:00 Hct 38.0 % (32.4-45.2) 07/22/18 08:00 MCV 90.3 fl (80-96) 07/22/18 08:00 MCH 30.5 pg (25.7-33.7) 07/22/18 08:00 MCHC 33.8 g/dl (32.0-36.0) 07/22/18 08:00 RDW 17.4 % (11.6-15.6) H 07/22/18 08:00 Plt Count 132 K/MM3 (134-434) L 07/22/18 08:00 MPV 10.6 fl (7.5-11.1) 07/22/18 08:00 Absolute Neuts (auto) 6.5 K/mm3 (1.5-8.0) 07/22/18 08:00 Neutrophils % 69.1 % (42.8-82.8) 07/22/18 08:00 Lymphocytes % 23.0 % (8-40) 07/22/18 08:00 Monocytes % 6.0 % (3.8-10.2) 07/22/18 08:00 Eosinophils % 1.6 % (0-4.5) 07/22/18 08:00 Basophils % 0.3 % (0-2.0) 07/22/18 08:00 Nucleated RBC % 0 % (0-0) 07/22/18 08:00 Problem List - Problems (1) delivery delivered Code(s): O82 - ENCOUNTER FOR DELIVERY WITHOUT INDICATION (2) Encounter for care and examination after delivery Code(s): Z39.2 - ENCOUNTER FOR ROUTINE FOLLOW-UP Assessment/Plan stab;e Plan encourage ambulation preferably avoid oxycodone, that causes nausea chest X ray due to Pos Quantiferon
[2018-07-23] MEDS: BUDESONIDE/FORMETEROL FUMARATE 160/4.5 mcg INHALER IH SCH ×2 (09:13→23:00)
[2018-07-23] MEDS: ENOXAPARIN NA (PORCINE) 40 MG/0.4 ML DISP.SYRIN SQ SCH (09:13)
[2018-07-23] MEDS ORDERED: SENNOSIDES/DOCUSATE COMBO (SENNA PLUS) TABLET (UD) PO PRN (22:00)
[2018-07-23] MEDS: MONTELUKAST NA 10 MG TABLET PO SCH (23:00)
[2018-07-24] MEDS: IBUPROFEN 600 MG TABLET (FP) PO PRN ×5 (01:50→22:36)
[2018-07-24] MEDS: oxyCODONE HCL 5 MG TABLET PO PRN ×5 (01:50→22:36)
[2018-07-24] MEDS: SIMETHICONE 80 MG TAB.CHEW (FP) PO PRN ×5 (01:50→22:35)
[2018-07-24 08:26] LABS: BASO % 0.2 % (0-2.0); EOS % 2.6 % (0-4.5); HEMATOCRIT 36.4 % (32.4-45.2); HEMOGLOBIN 12.3 GM/dL (10.7-15.3); LYMPH % 22.8 % (8-40); MCH 30.7 pg (25.7-33.7); MCHC 33.7 g/dl (32.0-36.0); MEAN CELL VOLUME 90.9 fl (80-96); MEAN PLT VOLUME 10.2 fl (7.5-11.1); MONO % 5.9 % (3.8-10.2); NEUT % 68.5 % (42.8-82.8); PLATELET COUNT 151 K/MM3 (134-434); WHITE BLOOD COUNT 8.6 K/mm3 (4.0-10.0)
--- NOTE | 2018-07-24 08:43 | PN ---
Post Progress Note - Subjective Subjective: c/o pain less nickie yesteday , 6[birth year]10 takes oxycodone for pain three times a day bm done Post Day: 3 Type of Delivery: Repeat C/S Vital Signs: Vital Signs Temperature 98.6 F 07/24/18 07:30 Pulse Rate 50 L 07/24/18 07:30 Respiratory Rate 20 07/24/18 07:30 Blood Pressure 123/69 07/24/18 07:30 O2 Sat by Pulse Oximetry (%) 98 07/21/18 13:00 Breast Exam: Yes: Soft. No: Engorged Uterus: Yes: Fundus Firm, Fundus below umbilicus, Non-tender Incision: Yes: Sutures intact. No: Redness, Oozing Abdomen/GI: Yes: Abdomen soft, Passing flatus, Tolerating PO (diet). No: Abdominal Distention, Tender Lochia: Yes: Rubra Lochia, amount: Small Extremities: Yes: Calves non-tender Perineum: Yes: Intact Activity: Ambulating - Labs Labs: CBC WBC 9.4 K/mm3 (4.0-10.0) 07/22/18 08:00 RBC 4.21 M/mm3 (3.60-5.2) 07/22/18 08:00 Hgb 12.9 GM/dL (10.7-15.3) 07/22/18 08:00 Hct 38.0 % (32.4-45.2) 07/22/18 08:00 MCV 90.3 fl (80-96) 07/22/18 08:00 MCH 30.5 pg (25.7-33.7) 07/22/18 08:00 MCHC 33.8 g/dl (32.0-36.0) 07/22/18 08:00 RDW 17.4 % (11.6-15.6) H 07/22/18 08:00 Plt Count 132 K/MM3 (134-434) L 07/22/18 08:00 MPV 10.6 fl (7.5-11.1) 07/22/18 08:00 Absolute Neuts (auto) 6.5 K/mm3 (1.5-8.0) 07/22/18 08:00 Neutrophils % 69.1 % (42.8-82.8) 07/22/18 08:00 Lymphocytes % 23.0 % (8-40) 07/22/18 08:00 Monocytes % 6.0 % (3.8-10.2) 07/22/18 08:00 Eosinophils % 1.6 % (0-4.5) 07/22/18 08:00 Basophils % 0.3 % (0-2.0) 07/22/18 08:00 Nucleated RBC % 0 % (0-0) 07/22/18 08:00 Problem List - Problems (1) delivery delivered Code(s): O82 - ENCOUNTER FOR DELIVERY WITHOUT INDICATION (2) Encounter for care and examination after delivery Code(s): Z39.2 - ENCOUNTER FOR ROUTINE FOLLOW-UP Assessment/Plan stable plan ct po care discharge tomorrow.
[2018-07-24] MEDS: ENOXAPARIN NA (PORCINE) 40 MG/0.4 ML DISP.SYRIN SQ SCH (10:36)
[2018-07-24] MEDS: BUDESONIDE/FORMETEROL FUMARATE 160/4.5 mcg INHALER IH SCH ×2 (10:49→22:37)
[2018-07-24] MEDS: ACETAMINOPHEN 325 MG TABLET (FP) PO PRN (12:07)
[2018-07-24] MEDS: MONTELUKAST NA 10 MG TABLET PO SCH (22:36)
[2018-07-25] MEDS: SIMETHICONE 80 MG TAB.CHEW (FP) PO PRN ×2 (04:02→09:11)
[2018-07-25] MEDS: IBUPROFEN 600 MG TABLET (FP) PO PRN ×2 (04:02→09:11)
[2018-07-25] MEDS: oxyCODONE HCL 5 MG TABLET PO PRN ×2 (04:03→09:10)
[2018-07-25 08:48] VITALS: BP 125/72; PULSE 57; TEMP 98
[2018-07-25] MEDS: ENOXAPARIN NA (PORCINE) 40 MG/0.4 ML DISP.SYRIN SQ SCH (09:10)
[2018-07-25] MEDS: BUDESONIDE/FORMETEROL FUMARATE 160/4.5 mcg INHALER IH SCH (09:12)
--- NOTE | 2018-07-25 13:46 | PN ---
Post Progress Note Post Day: 4 Type of Delivery: Repeat C/S Vital Signs: Vital Signs Temperature 98 F 07/25/18 07:15 Pulse Rate 57 L 07/25/18 07:15 Respiratory Rate 20 07/25/18 07:15 Blood Pressure 125/72 07/25/18 07:15 O2 Sat by Pulse Oximetry (%) 98 07/21/18 13:00 Uterus: Yes: Fundus Firm Incision: Yes: Dressing dry and intact Abdomen/GI: Yes: Abdomen soft Lochia: Yes: Rubra Lochia, amount: Small Extremities: Yes: Calves non-tender Activity: Ambulating - Labs Labs: CBC WBC 8.6 K/mm3 (4.0-10.0) 07/24/18 07:45 RBC 4.00 M/mm3 (3.60-5.2) 07/24/18 07:45 Hgb 12.3 GM/dL (10.7-15.3) 07/24/18 07:45 Hct 36.4 % (32.4-45.2) 07/24/18 07:45 MCV 90.9 fl (80-96) 07/24/18 07:45 MCH 30.7 pg (25.7-33.7) 07/24/18 07:45 MCHC 33.7 g/dl (32.0-36.0) 07/24/18 07:45 RDW 17.0 % (11.6-15.6) H 07/24/18 07:45 Plt Count 151 K/MM3 (134-434) 07/24/18 07:45 MPV 10.2 fl (7.5-11.1) 07/24/18 07:45 Absolute Neuts (auto) 5.9 K/mm3 (1.5-8.0) 07/24/18 07:45 Neutrophils % 68.5 % (42.8-82.8) 07/24/18 07:45 Lymphocytes % 22.8 % (8-40) 07/24/18 07:45 Monocytes % 5.9 % (3.8-10.2) 07/24/18 07:45 Eosinophils % 2.6 % (0-4.5) 07/24/18 07:45 Basophils % 0.2 % (0-2.0) 07/24/18 07:45 Nucleated RBC % 0 % (0-0) 07/24/18 07:45 Assessment/Plan 32yo s/p RLTCS, POD#4 Routine PP care OOB, ambulate Abdominal binder Discussed Motrin ATC with Tylenol for break through pain, has been using oxy consistently for pain. Discouraged oxy use and encouraged Motrin/ Tylenol Follow up in one week for incision check Mariana Hinds MD
--- NOTE | 2018-07-26 18:39 | DS ---
Physical Exam-ACCESS DATABASE DEVELOPER Vital Signs: Vital Signs Temperature 98 F 07/25/18 07:15 Pulse Rate 57 L 07/25/18 07:15 Respiratory Rate 20 07/25/18 07:15 Blood Pressure 125/72 07/25/18 07:15 O2 Sat by Pulse Oximetry (%) 98 07/21/18 13:00 Constitutional: Yes: Well Nourished, No Distress, Calm Eyes: Yes: WNL, Conjunctiva Clear, EOM Intact HENT: Yes: WNL, Atraumatic, Normocephalic Neck: Yes: WNL, Supple, Trachea Midline Cardiovascular: Yes: WNL, Regular Rate and Rhythm Respiratory: Yes: WNL, Regular, CTA Bilaterally Gastrointestinal: Yes: WNL ...Rectal Exam: Yes: WNL Renal/: Yes: WNL External Genitalia: Yes: Normal ....Post : Yes: Uterus firm, Uterus non-tender, Slight lochia rubra Breast(s): Yes: WNL Musculoskeletal: Yes: WNL Extremities: Yes: WNL Edema: LLE: Trace, RLE: Trace Integumentary: Yes: WNL Wound/Incision: Yes: Clean/Dry, Well Approximated, Rogelio Intact Neurological: Yes: WNL, Alert, Oriented ...Motor Strength: WNL Psychiatric: Yes: WNL, Alert, Oriented Labs: CBC, BMP 07/24/18 07:45 Delivery - Delivery Section: Repeat, Low Flap Transverse (no complicatio) Type of Anesthesia: Spinal Episiotomy/Laceration: None EBL (cc): 500 Delivery, Single - Stages of Labor Date of Delivery: 07/21/18 Time of Delivery: 08:16 Time Placenta Delivered: 08:17 Placenta: Yes: Expressed - Condition of Synthetic Resin Operator/Deputy Attorney General Present: Yes Name: Mine Abreu Infant Gender: Female Weight: 7 lb 10 oz Position: Right, OT Total Hours ROM (Hrs/Mins): 2 MINS - 1 Minute Total Score: 9 5 Minutes Total Score: 9 - Mayer Feeding Plan Initial Plan: Elected not to breastfeed exclusively throughout hospitalization Discharge Summary Reason For Visit: ADMIT Procedures: Principal: repeat LST c/s Hospital Course: no complication Condition: Stable - Instructions Diet, Activity, Other Instructions: Regular Diet If pain, fever or heavy bleeding, call M.D. If any redness or drainage noted to incsion site, call M.D. Call HR and make appt. to be seen in 1 week. [facility]: [phone] Referrals: Louie Hogan MD [Staff Physician] - Disposition: HOME - Home Medications Comprehensive Discharge Medication List: Ambulatory Orders Montelukast Na [Singulair -] 10 mg PO HS 02/13/17 Budesonide/Formeterol Fumarate [SYMBICORT 160/4.5mcg -] 2 puff IH BID inhaler 02/14/17 Ferrous Sulfate [Feosol] 325 mg PO DAILY #30 tab 02/14/17 Ibuprofen 600 mg PO Q6H PRN #30 tablet 07/25/18
--- NOTE | 2018-08-02 15:24 | PATH ---
Surgical Pathology Report Patient Name: SAVANNAH GALLEGOS Med. Rec. 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 Specimen(s) Received PLACENTA Clinical History , 39 weeks gestation, history of asthma Final Diagnosis PLACENTA, SECTION: 588 G THIRD TRIMESTER PLACENTA WITH TRIVASCULAR UMBILICAL CORD AND UNREMARKABLE PLACENTAL MEMBRANES. Electronically Signed Payal Gee M.D. Gross Description The specimen is received fresh labeled placenta and is a 588 gram, 18.5 x 15.0 x 3.3 cm. placenta with attached membranes and umbilical cord. The attached membranes are wright, translucent with focal opacities and insert marginally. The umbilical cord measures 33 cm. in length and averages 1.0 cm. in diameter. The cord inserts eccentrically, 2.5 cm. to the nearest margin. No true knots or strictures are identified. Cut surface of the umbilical cord reveals 3 vessels. The surface is lieberman blue with moderate fibrin deposition and appropriate caliber vessels. The maternal surface is red-brown with focal defects. Sectioning reveals red-brown, spongy parenchyma. No lesions are identified. Cylinder Die Machine Operator sections are submitted in three cassettes as follows: 1- membrane rolls and umbilical cord; 2-3- full thickness sections of placenta. 08/01/2018 [facility]08/01/2018
== END 2018-07-25 18:15 | disposition home or self-care (01) | DRG 540 ==
LOC: JLDR 05:45 → J3W 14:08
PROVIDERS: ADMIT Obstetrics & Gynecology; ATTEND Obstetrics & Gynecology
PROC: 10D00Z1 Extraction of Products of Conception, Low, Open Approach (ICD-10-PCS; principal; 2018-07-21)
DX: O34.211 Maternal care for low transverse scar from previous cesarean delivery (principal); N85.8 Other specified noninflammatory disorders of uterus; O69.81X0 Labor and delivery complicated by cord around neck, without compression, not applicable or unspecified; Z3A.39 39 weeks gestation of pregnancy; Z37.0 Single live birth
CPT/HCPCS: 36415; 71046-TC-FY; 85025; 88307-TC

== ENCOUNTER 2018-07-27 14:23 | Emergency (ER) | payer OTHER ==
[2018-07-27 14:35] VITALS: BMI 29.0
--- NOTE | 2018-07-27 14:56 | PDOC ---
History of Present Illness - History of Present Illness Initial Comments: 32 Y F (), PMH of C/S x3, uterine fibroids, and asthma, presenting with lower abdominal pain for 2 days. Patient was recently discharged yesterday following her uncomplicated . Patient notes she has been experiencing pain along her incision site since the surgery 6 days ago s/p C section, but it has worsened the past two days. She complains of pain along the lower abdominal incision site, worse on the right side, and radiating into her lower and upper back. Patient denies urinary symptoms, vaginal bleeding, or vaginal discharge, but confirms an unusual smell coming from the incision site. Patient complains of associated bladder fullness, lower abdominal edema, full breasts ( has been normal), headache and constipation (LBM was yesterday). She does note she has been passing more gas than normal, and states it moves around her stomach. Patient was given oxycodone during her stay in the hospital, which helped alleviate her pain. She was given Motrin upon discharge, which has not provided her with any relief. Patient confirms a history of complications with her c-sections, where during her first c/s she notes the incision came apart and was infected. She does report seeing Dr. Hogan earlier today for her symptoms, and was referred to come to the ED. she is currently breast feeding her new born, no other complications post surgery. Denies fever, chills, chest pain, SOB, palpitation, dizziness, weakness, N, V, D , leg swelling, No sick contacts or travel. No new changes in medications. Allergies: NKA Past Medical History: C sections,uterine fibroids, and asthma Social history: Lives with family. No smoking. No alcohol. No illicit drugs. Surgical history: C sections x3 OBGYN: Dr. Louie Hogan 07/27/18 16:08 <Bernadette Vyas - Last Filed: 07/27/18 16:10> - General History Source: Patient Exam Limitations: No Limitations <Rosi Slater - Last Filed: 07/27/18 18:04> - General Chief Complaint: Pain, Acute Stated Complaint: SENT BY PCP/ABD BACK PAIN Time Seen by Provider: 07/27/18 14:55 Past History <Bernadette Vyas - Last Filed: 07/27/18 16:10> - Past Medical History Asthma: Yes (ALBUTEROL,SYMBICORT,SINGULAR) Cancer: No Cardiac Disorders: No COPD: No Diabetes: No HTN: No Seizures: No Thyroid Disease: No - Reproductive History (#): 1 Para: 1 Cervical CA: No Dysfunctional Uterine Bleeding: No (no vagina bleeding today) Ectopic : No Polycystic Ovaries: No Therapeutic (s) & number: No Uterine Fibroids: Yes - Immunization History Immunization Up to Date: Yes - Suicide/Smoking/Psychosocial Hx Smoking Status: No Smoking History: Never smoked Years of Tobacco Use: 0 Have you smoked in the past 12 months: No Number of Cigarettes Smoked Daily: 0 Cigars Per Day: 0 Hx Alcohol Use: No Drug/Substance Use Hx: No Substance Use Type: None Hx Substance Use Treatment: No <Rosi Slater - Last Filed: 07/27/18 18:04> - Past Medical History Allergies/Adverse Reactions: Allergies Allergy/AdvReac Type Severity Reaction Status Date / Time No Known Allergies Allergy Verified 07/21/18 12:04 Home Medications: Ambulatory Orders Cephalexin Monohydrate [Keflex -] 500 mg PO BID 7 Days #14 capsule 07/27/18 Oxycodone HCl 10 mg PO QID PRN #12 tablet MDD 4 07/27/18 Review of Systems - Review of Systems Comments:: Constitutional: no fevers or chills. HEENT: +Headache. no dizziness. No congestion. No visual/hearing disturbances. CVS: no cp or syncope. Resp: no sob. No cough. Gastrointestinal: +Lower abdominal pain along incision site, worse on the right side. +Constipation. +Increased flatulence. no nausea or vomiting. Genitourinary: +Bladder fullness. no urinary sx, hematuria. MUSCULOSKELETAL: +Back pain. +Breast fullness. No joint pain and swelling. No neck pain. SKIN: no redness or skin changes, no discharge, no rash. No wounds. Hematologic: no easy bruising/bleeding. NEUROLOGIC: +Headache. No dizziness, LOC or altered mental status. No weakness , numbness or tingling. Allergic/Immunologic: no allergies All other systems reviewed and negative, or as documented in HPI. 07/27/18 16:09 <Bernadette Vyas - Last Filed: 07/27/18 16:10> *Physical Exam - Vital Signs Last Vital Signs Temp Pulse Resp BP Pulse Ox 98.2 F 71 20 132/77 100 07/27/18 14:34 07/27/18 14:34 07/27/18 14:34 07/27/18 14:34 07/27/18 14:34 - Physical Exam Comments: General: Well appearing, awake and alert, NAD. HEENT: NCAT, PERRL, EOMI, clear conjunctiva, anicteric, moist mucus membranes, clear oropharynx, no oral lesions.. Neck: neck supple, FROM Resp: CTAB, normal and even respirations, no respiratory distress CVS: RRR, no murmurs, 2+ peripheral pulses throughout, no peripheral edema Abdomen: + Horizontal lower abdominal incision site with steri-strips in place, tender over incisional site. No fluctuance, induration, or firmness. Clean dry, and intact. soft, ND, no peritoneal signs. No CVAT. Back: nontender, normal inspection and ROM. no CVAT. MSK: no edema, ALATORRE x4, ROM intact. No clubbing or cyanosis. normal bulk and tone. Extremities: no calf tenderness Neuro: alert, oriented appropriately Skin: warm and well perfused, cap refill <2 sec, normal color 07/27/18 16:10 <Bernadette Vyas - Last Filed: 07/27/18 16:10> - Vital Signs Last Vital Signs Temp Pulse Resp BP Pulse Ox 98.2 F 71 20 132/77 100 07/27/18 14:34 07/27/18 14:34 07/27/18 14:34 07/27/18 14:34 07/27/18 14:34 <Rosi Slater - Last Filed: 07/27/18 18:04> Moderate Sedation - Procedure Monitoring Vital Signs: Procedure Monitoring Vital Signs Temperature 98.2 F 07/27/18 14:34 Pulse Rate 71 07/27/18 14:34 Respiratory Rate 20 07/27/18 14:34 Blood Pressure 132/77 07/27/18 14:34 O2 Sat by Pulse Oximetry (%) 100 07/27/18 14:34 <Bernadette Vyas - Last Filed: 07/27/18 16:10> - Procedure Monitoring Vital Signs: Procedure Monitoring Vital Signs Temperature 98.2 F 02/28/19 14:34 Pulse Rate 71 07/27/18 14:34 Respiratory Rate 20 07/27/18 14:34 Blood Pressure 132/77 07/27/18 14:34 O2 Sat by Pulse Oximetry (%) 100 07/27/18 14:34 <Rosi Slater - Last Filed: 07/27/18 18:04> ED Treatment Course - LABORATORY CBC & Chemistry Diagram: 07/27/18 15:20 07/27/18 15:20 - ADDITIONAL ORDERS Additional order review: 07/27/18 15:20 RBC 4.16 MCV 90.1 MCHC 33.6 RDW 16.6 H MPV 10.2 Neutrophils % 74.6 Lymphocytes % 19.4 Monocytes % 4.6 Eosinophils % 1.1 Basophils % 0.3 - Consult/PCP Time Called: 15:20 (Spoke with Jez Hogan concerning patient's care ) Case discussed with personal care physician: Louie Hogan <Bernadette Vyas - Last Filed: 07/27/18 16:10> - LABORATORY CBC & Chemistry Diagram: 07/27/18 15:20 07/27/18 15:20 <Rosi Slater - Last Filed: 07/27/18 18:04> Medical Decision Making - Medical Decision Making 07/27/18 18:00 hpi as documented VS wnl, no fever prior DC and stay for C section noted and reviewed labs and lytes wnl. UA with +blood and WBCs, +leuk esterase correlating with UTI. f/u cultures keflex x 1 week for UTI. incisional scar c/d/i with steri strips in pain, and no s/s infection or abscess no intra abdominal tenderness, doubt intra abdominal pathology/infection. spoke with Dr Hogan with clinical update, also eval the patient, doubt intra abdominal pathology. sx c/w incisional pain, rx oxycodone x short course. Will discharge patient with a short course of opiates. Went over the risks of the medication. Advised patient to not mix with other products containing acetaminophen, to not combine with alcohol, or other illicit drugs, to not drive or operate machinery, and to refrain from any activity that will require complete attention while taking this medication. Pt informed of my clinical impression, treatment recommendations and disposition plan. All questions answered to patient's satisfaction and expressed understanding and comfort with this. Reasons for returning to the ED sooner discussed with the patient otherwise, follow up with primary care physician. At the time of discharge, the patient is alert, clinically improved, tolerating po and verbalizes understanding of instructions. Patient does not suffer from an acute life-threatening medical condition at this time she is safe for outpatient follow-up. f/u OB - Dr Hogan as outpatient. pump and dump her milk and use formula for new born, as meds can transfer (opioids) via breastmilk and prevent opioid w/d/symptoms to the baby. <Rosi Slater - Last Filed: 07/27/18 18:04> *DC/Admit/Observation/Transfer - Attestations Scribe Attestion: Documentation prepared by CHRISTAL Jolly, acting as pesticide use medical coordinator for Rosi Slater MD. 07/27/18 16:00 <Bernadette Vyas - Last Filed: 07/27/18 16:10> - Discharge Dispostion Decision to Admit order: No - Attestations Physician Attestion: 07/27/18 18:00 I, Rosi Slater MD, attest that this document has been prepared under my direction and personally reviewed by me in its entirety. I further attest, that it accurately reflects all work, treatment, procedures and medical decision -making performed by me. <Rois Slater - Last Filed: 07/27/18 18:04> Diagnosis at time of Disposition: Pain at surgical incision UTI (urinary tract infection) Qualifiers: Urinary tract infection type: acute cystitis Hematuria presence: with hematuria Qualified Code(s): N30.01 - Acute cystitis with hematuria - Discharge Dispostion Disposition: HOME Condition at time of disposition: Improved - Prescriptions Prescriptions: Cephalexin Monohydrate [Keflex -] 500 mg PO BID 7 Days #14 capsule Oxycodone HCl 10 mg PO QID PRN #12 tablet MDD 4 PRN Reason: Pain Level 7 - 10 - Referrals Referrals: [facility] [place] [Provider Group] [facility] [Provider Group] Louie Hogan MD [Staff Physician] - - Patient Instructions Printed Discharge Instructions: DI for , DI for Urinary Tract Infection (UTI), DI for Abdominal Pain-Adult Additional Instructions: 1) Please follow-up with your primary care doctor in the next 1-2 days. Please call tomorrow for an appointment. If you cannot follow-up with your primary care doctor please return to the ED for any urgent issues. 2) You were given a copy of the tests performed today. Please bring the results with you and review them with your primary care doctor. Your laboratory / imaging results were normal, you have a Urinary tract infection that will be treated with antibiotics - keflex twice a day x 1 week 3) If you have any worsening of symptoms or any other concerns please return to the ED immediately. Return if worsening symptoms including fevers, headache, vomiting, visual or hearing disturbances, worsening abdominal pain, chest pain, shortness of breath, syncope, dehydration, inability to take things by mouth/ vomiting, altered mental status, or worsening concerning symptoms. 4) Please continue taking your home medications as directed. your medications on discharge include Keflex. side effects may include upset stomach, abdominal pain, vomiting, or diarrhea. Please take one tablet of OXYCODONE every 6 hours, as needed for SEVERE pain. Please do not take this medication unless you absolutely need it, it is very addictive. Please do not drive, operate heavy machinery or make important decisions while on this medication, it can cloud your judgement. this can also cause more constipation, take high fiber meals to prevent. Please pump and dump while you are taking your medications particularly motrin and the oxycodone, and feed the baby formula, as these medications can transfer via breast milk to your . Avoid heavy lifting or strenuous activity as this could break apart your incisional scar.
[2018-07-27 15:54] LABS: BASO % 0.3 % (0-2.0); EOS % 1.1 % (0-4.5); HEMATOCRIT 37.4 % (32.4-45.2); HEMOGLOBIN 12.6 GM/dL (10.7-15.3); LYMPH % 19.4 % (8-40); MCH 30.3 pg (25.7-33.7); MCHC 33.6 g/dl (32.0-36.0); MEAN CELL VOLUME 90.1 fl (80-96); MEAN PLT VOLUME 10.2 fl (7.5-11.1); MONO % 4.6 % (3.8-10.2); NEUT % 74.6 % (42.8-82.8); PLATELET COUNT 226 K/MM3 (134-434); RBC 4.16 M/mm3 (3.60-5.2); RDW 16.6 % (11.6-15.6); WHITE BLOOD COUNT 8.8 K/mm3 (4.0-10.0)
[2018-07-27 15:56] LABS: URINE APPEARANCE CLOUDY; URINE BILIRUBIN NEGATIVE (<2.0 mg/dL); URINE GLUCOSE (UA) NEGATIVE (NEGATIVE); URINE KETONE NEGATIVE (NEGATIVE); URINE LEUK ESTERASE 2+ (NEGATIVE); URINE NITRITE NEGATIVE (NEGATIVE); URINE PROTEIN 2+ (NEGATIVE); URINE UROBILINOGEN NEGATIVE mg/dL (0.2-1.0)
[2018-07-27 16:02] LABS: URINE COLOR RED
[2018-07-27 16:04] LABS: EPI CELLS MODERATE /HPF (FEW)
[2018-07-27] MEDS ORDERED: morphine CARPU-JECT 4 MG/1 ML DISP.SYRIN IVPUSH ONE (16:04)
[2018-07-27] MEDS ORDERED: KETOROLAC TROMETHAMINE 15 MG/ML VIAL IVPUSH ONE (16:04)
[2018-07-27] MEDS ORDERED: morphine SULFATE 4 MG/ML VIAL ONE (16:08)
[2018-07-27] MEDS ORDERED: KETOROLAC TROMETHAMINE 15 MG/ML VIAL ONE (16:08)
[2018-07-27 16:23] LABS: ALBUMIN 2.8 g/dl (3.4-5.0); ALK PHOS 102 U/L (45-117); ANION GAP 5 MMOL/L (8-16); BILIRUBIN,TOTAL 0.2 mg/dL (0.2-1); BLOOD UREA NITROGEN 10 mg/dL (7-18); CALCIUM 8.4 mg/dL (8.5-10.1); CHLORIDE 107 mmol/L (98-107); CO2 27 mmol/L (21-32); CREATININE 0.5 mg/dL (0.55-1.3); GLUCOSE,RANDOM 74 mg/dL (74-106); LIPASE 133 U/L (73-393); POTASSIUM 4.1 mmol/L (3.5-5.1); SGOT/AST 37 U/L (15-37); SGPT/ALT 44 U/L (13-61); SODIUM 140 mmol/L (136-145); TOT PROT 6.5 g/dl (6.4-8.2)
[2018-07-27] MEDS ORDERED: CEPHALEXIN MONOHYDRATE 500 MG CAPSULE (UD) PO ONE (16:58)
[2018-07-27] MEDS ORDERED: CEPHALEXIN MONOHYDRATE 500 MG CAPSULE (UD) ONE (17:05)
[2018-07-27 18:22] VITALS: BP 148/77; PULSE 61; TEMP 98.1
== END 2018-07-27 18:25 | disposition home or self-care (01) ==
LOC: JER 14:23
PROC: 3E033NZ Introduction of Analgesics, Hypnotics, Sedatives into Peripheral Vein, Percutaneous Approach (ICD-10-PCS; principal; 2018-07-27)
PROC: 3E0333Z Introduction of Anti-inflammatory into Peripheral Vein, Percutaneous Approach (ICD-10-PCS; 2018-07-27)
DX: O86.29 Other urinary tract infection following delivery (principal); L76.82 Other postprocedural complications of skin and subcutaneous tissue
CPT/HCPCS: 36415; 80053; 81003; 81015; 83690; 85025; 87086; 87186; 99283-25

== ENCOUNTER 2018-08-18 02:53 | Emergency (ER) | payer OTHER ==
[2018-08-18 03:17] VITALS: BMI 26.6
--- NOTE | 2018-08-18 03:29 | PDOC ---
History of Present Illness - General Chief Complaint: Pain, Acute Stated Complaint: ABD PAIN - History of Present Illness Initial Comments: The pt is a 33F w/ a history of asthma, s/p C/S 4 weeks ago who presents for evaluation of 2 hours of acute on chronic, intermittent, epigastric, 'twisting' , non-radiating abdominal pain associated with 5 episodes of NBNB vomiting tonight. Endorses NB diarrhea over the last two days. Has been taking Ibuprofen 600mg BID s/p C/S for pain. Denies new foods/exposures. Reports that pain is sometimes associated with drinking water and is occasionally Denies fevers/chills, chest pain, SOB, dysuria, hematuria, vaginal bleeding/ discharge 08/18/18 03:26 Past History - Past Medical History Allergies/Adverse Reactions: Allergies Allergy/AdvReac Type Severity Reaction Status Date / Time No Known Allergies Allergy Verified 08/18/18 03:14 Home Medications: Ambulatory Orders Oxycodone HCl 10 mg PO QID PRN 3 Days #12 tablet MDD 4 07/27/18 Ondansetron HCl [Zofran] 8 mg PO Q8H #30 tablet 08/18/18 Sulfamethoxazole/Trimethoprim [Bactrim Ds -] 1 tab PO BID #14 tablet 08/18/18 Asthma: Yes (ALBUTEROL,SYMBICORT,SINGULAR) Cancer: No Cardiac Disorders: No COPD: No Diabetes: No HTN: No Seizures: No Thyroid Disease: No - Reproductive History (#): 1 Para: 1 Cervical CA: No Dysfunctional Uterine Bleeding: No (no vagina bleeding today) Ectopic : No Polycystic Ovaries: No Therapeutic (s) & number: No Uterine Fibroids: Yes - Immunization History Immunization Up to Date: Yes - Suicide/Smoking/Psychosocial Hx Smoking Status: No Smoking History: Never smoked Years of Tobacco Use: 0 Have you smoked in the past 12 months: No Number of Cigarettes Smoked Daily: 0 Cigars Per Day: 0 Information on smoking cessation initiated: No Hx Alcohol Use: No Drug/Substance Use Hx: No Substance Use Type: None Hx Substance Use Treatment: No Review of Systems - Review of Systems Able to Perform ROS?: Yes Comments:: GENERAL/CONSTITUTIONAL: No fever. No weakness HEAD, EYES, EARS, NOSE AND THROAT: No change in vision. No ear pain or discharge. No sore throat CARDIOVASCULAR: No chest pain or shortness of breath RESPIRATORY: Denies cough, hemoptysis GENITOURINARY: No dysuria, frequency, or change in urination MUSCULOSKELETAL: No joint or muscle swelling or pain. No neck or back pain SKIN: No rash NEUROLOGIC: No headache, vertigo, loss of consciousness, or change in strength/ sensation ENDOCRINE: No increased thirst. No abnormal weight change HEMATOLOGIC/LYMPHATIC: No anemia, easy bleeding, or history of blood clots ALLERGIC/IMMUNOLOGIC: No hives or skin allergy 08/18/18 03:29 Is the patient limited Macedonian proficient: No *Physical Exam - Vital Signs Last Vital Signs Temp Pulse Resp BP Pulse Ox 98.2 F 82 20 138/74 99 08/18/18 03:14 08/18/18 03:14 08/18/18 03:14 08/18/18 03:14 08/18/18 03:14 - Physical Exam Comments: GENERAL: Awake, alert, and oriented to person/place/time HEAD: No signs of trauma, normocephalic, atraumatic EYES: PERRLA, EOMI, sclera anicteric, conjunctiva clear ENT: Hearing grossly normal, nares patent, oropharynx clear without exudates. Moist mucosa LUNGS: No distress, speaks full sentences, clear to auscultation bilaterally HEART: Regular rate and rhythm, normal S1 and S2, no murmurs appreciated, peripheral pulses normal and equal bilaterally ABDOMEN: Soft, epigastric TTP w/o rebound, normoactive bowel sounds; well healing low transverse incision w/ TTP at the R end of the incision which the pt reports has been present since C/S EXTREMITIES: Normal inspection, Normal range of motion, no edema. No clubbing or cyanosis NEUROLOGICAL: Cranial nerves II through XII grossly intact. Normal speech, no focal sensorimotor deficits SKIN: Warm, Dry 08/18/18 03:29 Moderate Sedation - Procedure Monitoring Vital Signs: Procedure Monitoring Vital Signs Temperature 98.2 F 08/18/18 03:14 Pulse Rate 82 08/18/18 03:14 Respiratory Rate 20 08/18/18 03:14 Blood Pressure 138/74 08/18/18 03:14 O2 Sat by Pulse Oximetry (%) 99 08/18/18 03:14 ED Treatment Course - LABORATORY CBC & Chemistry Diagram: 08/18/18 03:16 08/18/18 03:16 Medical Decision Making - Medical Decision Making The pt is a 33F w/ a history of asthma, documented hx of GERD, and 1 month s/p C /S who presents for evaluation of 2 hours of intermittent, non-radiating, epigastric 'twisting' pain w/ associated NBNB emesis x5. Pt reports similar pain over months but tonight pain is more intense. ED Course CMP, CBC, Lipase UA, Upreg Viscous lido, Pepcid, Maalox Zofran 4mg IV once 08/18/18 03:44 Pt w/ symptomatic improvement relative to arrival. Appears more comfortable. 08/18/18 05:15 No anemia Mild leukocytosis, pt afebrile w/o infectious symptoms Lytes wnl No CHELY Lipase wnl Urine pending 08/18/18 05:30 negative 08/18/18 06:08 Pt signed out to day team *DC/Admit/Observation/Transfer Diagnosis at time of Disposition: UTI (urinary tract infection) Abdominal pain Qualifiers: Abdominal location: unspecified location Qualified Code(s): R10.9 - Unspecified abdominal pain - Discharge Dispostion Disposition: HOME Condition at time of disposition: Improved Decision to Admit order: No - Prescriptions Prescriptions: Ondansetron HCl [Zofran] 8 mg PO Q8H #30 tablet Sulfamethoxazole/Trimethoprim [Bactrim Ds -] 1 tab PO BID #14 tablet - Referrals Referrals: Bolivar Mackenzie MD [Primary Care Provider] - Isrrael Washington MD [Staff Physician] - Bishnu Porter MD [Staff Physician] - - Patient Instructions Printed Discharge Instructions: Urinary Tract Infection, DI for Peptic Ulcer Additional Instructions: You were seen in the Emergency Department for evaluation of abdominal pain. Your labs were unremarkable. Review the handout provided at discharge. Follow up with a primary care provider and gastroenterology within a week (referrals given). While you were here you were found to have a urinary tract infection. To treat this infection please take: Keflex 500 mg by mouth twice a day for five days For your nausea please take: Zofran 8 mg by mouth every 8 hours as needed Return to the Emergency Department if you develop fevers, are unable to tolerate fluids/vomiting, worsening symptoms, blood in your stool/vomit, or any new/concerning symptoms. For you symptoms, you may take Maalox and Tylenol as directed on the package. Avoid spicy, heavily seasoned, or acidic foods. Do not eat close to bed-time and do not lay down shortly after eating. - Post Discharge Activity
--- NOTE | 2018-08-18 03:38 | PDOC ---
Attending Attestation - Resident Resident Name: Anibal Porter - ED Attending Attestation I have performed the following: I have examined & evaluated the patient, The case was reviewed & discussed with the resident, I agree w/resident's findings & plan, Exceptions are as noted - HPI HPI: 08/18/18 06:54 33F pmh asthma here with epigastric px for 2 hours, a/w nbnb emesis x5 today and 2 days of diarrhea. No other complaints. 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
[2018-08-18] MEDS ORDERED: LIDOCAINE VISCOUS 2% ORAL/TOP 20 ML UNIT-DOSE CUP MM ONE (03:41)
[2018-08-18] MEDS ORDERED: MAG HYDROX/AL HYDROX/SIMETH -MYLANTA- ORAL SUSPENSION PO ONE (03:41)
[2018-08-18] MEDS ORDERED: ONDANSETRON 4 MG/2 ML VIAL IVPUSH ONE (03:41)
[2018-08-18] MEDS ORDERED: FAMOTIDINE 20 MG/50 ML IVPB 20 MG/50 ML MG IVPB ONE ×2 (03:41→04:15)
[2018-08-18] MEDS ORDERED: MAG HYDROX/AL HYDROX/SIMETH 30 ML UNIT-DOSE CUP ONE (04:14)
[2018-08-18] MEDS ORDERED: LIDOCAINE VISCOUS 2% ORAL/TOP 20 ML UNIT-DOSE CUP ONE (04:14)
[2018-08-18 04:15] LABS: HEMATOCRIT 44.8 % (32.4-45.2); HEMOGLOBIN 15.2 GM/dL (10.7-15.3); MCH 30.7 pg (25.7-33.7); MEAN CELL VOLUME 90.3 fl (80-96); MEAN PLT VOLUME 10.4 fl (7.5-11.1); PLATELET COUNT 186 K/MM3 (134-434); RBC 4.97 M/mm3 (3.60-5.2); RDW 14.6 % (11.6-15.6); WHITE BLOOD COUNT 12.5 K/mm3 (4.0-10.0)
[2018-08-18] MEDS ORDERED: ONDANSETRON 4 MG/2 ML VIAL ONE (04:15)
[2018-08-18 04:54] LABS: ALBUMIN 3.6 g/dl (3.4-5.0); ALK PHOS 83 U/L (45-117); ANION GAP 7 MMOL/L (8-16); BILIRUBIN,TOTAL 0.3 mg/dL (0.2-1); BLOOD UREA NITROGEN 12 mg/dL (7-18); CALCIUM 8.4 mg/dL (8.5-10.1); CHLORIDE 104 mmol/L (98-107); CO2 29 mmol/L (21-32); CREATININE 0.8 mg/dL (0.55-1.3); GLUCOSE,RANDOM 94 mg/dL (74-106); LIPASE 211 U/L (73-393); POTASSIUM 3.8 mmol/L (3.5-5.1); SGOT/AST 41 U/L (15-37); SGPT/ALT 57 U/L (13-61); SODIUM 141 mmol/L (136-145)
[2018-08-18 06:04] LABS: HCG,QUALITATIVE URINE Negative
[2018-08-18 06:45] VITALS: BP 103/60; PULSE 50; TEMP 97.9
--- NOTE | 2018-08-18 08:22 | PDOC ---
*Physical Exam - Vital Signs Last Vital Signs Temp Pulse Resp BP Pulse Ox 97.9 F 50 L 20 103/60 96 08/18/18 06:43 08/18/18 06:43 08/18/18 03:14 08/18/18 06:43 08/18/18 06:43 - Physical Exam Comments: 08/18/18 08:[address] Lima. Patients symptoms improving, GI cocktail helpful, minimal abdominal tenderness Without vomiting overnight UA 2+ leukocyte esterase and bacteria positive ED Treatment Course - LABORATORY CBC & Chemistry Diagram: 08/18/18 03:16 08/18/18 03:16 - ADDITIONAL ORDERS Additional order review: Laboratory Results 08/18/18 08/18/18 05:24 03:16 Sodium 141 Potassium 3.8 Chloride 104 Carbon Dioxide 29 Anion Gap 7 L BUN 12 Creatinine 0.8 Creat Clearance w eGFR 81.63 Random Glucose 94 Calcium 8.4 L Total Bilirubin 0.3 AST 41 H ALT 57 Alkaline Phosphatase 83 Total Protein 7.0 Albumin 3.6 Lipase 211 Urine HCG, Qual Negative 08/18/18 03:16 RBC 4.97 MCV 90.3 MCHC 34.0 RDW 14.6 D MPV 10.4 - Medications Given in the ED: ED Medications Discontinued Medications Generic Name Dose Route Start Last Admin Trade Name Freq PRN Reason Stop Dose Admin Al Hydroxide/Mg Hydroxide 30 ml 08/18/18 03:41 08/18/18 04:23 Mylanta Suspension - PO 08/18/18 03:42 30 ml ONCE ONE Administration Famotidine/Sodium Chloride 20 mg in 50 mls @ 100 mls/hr 08/18/18 03:41 04:24 Pepcid 20 Mg Premixed Ivpb - IVPB 08/18/18 04:10 100 mls/hr ONCE ONE Administration Lidocaine HCl 20 ml 08/18/18 03:41 08/18/18 04:24 Xylocaine 2% Viscous Oral - MM 08/18/18 03:42 20 ml ONCE ONE Administration Ondansetron HCl 4 mg 08/18/18 03:41 08/18/18 04:24 Zofran Injection IVPUSH 08/18/18 03:42 4 mg ONCE ONE Administration Medical Decision Making - Medical Decision Making 08/18/18 08:38 Symptoms resolved, UA positive, will treat for UTI Prescribed Zofran for continued nausea *DC/Admit/Observation/Transfer Diagnosis at time of Disposition: Abdominal pain Qualifiers: Abdominal location: unspecified location Qualified Code(s): R10.9 - Unspecified abdominal pain UTI (urinary tract infection) Qualifiers: Urinary tract infection type: site unspecified Hematuria presence: without hematuria Qualified Code(s): N39.0 - Urinary tract infection, site not specified - Discharge Dispostion Disposition: HOME Condition at time of disposition: Improved - Prescriptions Prescriptions: Cephalexin [Keflex] 500 mg PO BID #10 capsule Ondansetron HCl [Zofran] 8 mg PO Q8H #30 tablet - Referrals Referrals: Bishnu Porter MD [Staff Physician] - Bolivar Mackenzie MD [Primary Care Provider] - Isrrael Washington MD [Staff Physician] - - Patient Instructions Printed Discharge Instructions: Urinary Tract Infection, DI for Peptic Ulcer Additional Instructions: You were seen in the Emergency Department for evaluation of abdominal pain. Your labs were unremarkable. Review the handout provided at discharge. Follow up with a primary care provider and gastroenterology within a week (referrals given). While you were here you were found to have a urinary tract infection. To treat this infection please take: Keflex 500 mg by mouth twice a day for five days For your nausea please take: Zofran 8 mg by mouth every 8 hours as needed Return to the Emergency Department if you develop fevers, are unable to tolerate fluids/vomiting, worsening symptoms, blood in your stool/vomit, or any new/concerning symptoms. For you symptoms, you may take Maalox and Tylenol as directed on the package. Avoid spicy, heavily seasoned, or acidic foods. Do not eat close to bed-time and do not lay down shortly after eating. - Post Discharge Activity
[2018-08-18 08:28] LABS: EPI CELLS 1.7 /HPF (0-5); HYALINE CASTS 0 /hpf (0-8); PH,URINE 5.5 (5.0-8.0); URINE APPEARANCE CLEAR; URINE BACTERIA 32.346 /hpf (NEGATIVE); URINE BILIRUBIN NEGATIVE (<2.0 mg/dL); URINE COLOR YELLOW; URINE GLUCOSE (UA) NEGATIVE (NEGATIVE); URINE KETONE NEGATIVE (NEGATIVE); URINE LEUK ESTERASE 2+ (NEGATIVE); URINE NITRITE NEGATIVE (NEGATIVE); URINE PROTEIN NEGATIVE (NEGATIVE); URINE RBC 52 /hpf (0-4); URINE UROBILINOGEN 0.2 mg/dL (0.2-1.0); URINE WBC 16 /hpf (0-5)
== END 2018-08-18 09:24 | disposition home or self-care (01) ==
LOC: JER 02:53
PROC: 3E0F7GC Introduction of Other Therapeutic Substance into Respiratory Tract, Via Natural or Artificial Opening (ICD-10-PCS; principal; 2018-08-18)
DX: R10.13 Epigastric pain (principal); J45.909 Unspecified asthma, uncomplicated; K21.9 Gastro-esophageal reflux disease without esophagitis
CPT/HCPCS: 36415; 80053; 81003; 83690; 84703; 85027; 96365; 96375; 99282-25

== ENCOUNTER 2018-09-24 23:46 | Emergency (ER) | payer OTHER ==
[2018-09-25 00:57] VITALS: BP 115/64; PULSE 72; TEMP 97.9; BMI 26.6
[2018-09-25] MEDS ORDERED: IBUPROFEN 600 MG TABLET (FP) PO ONE ×2 (01:46→03:05)
[2018-09-25] MEDS ORDERED: PHENAZOPYRIDINE HCL 100 MG TABLET (FP) PO ONE (01:46)
[2018-09-25 02:14] LABS: EPI CELLS 0.6 /HPF (0-5/HPF); HCG,QUALITATIVE URINE Negative; URINE APPEARANCE CLOUDY; URINE BACTERIA 6.9 /hpf (NEGATIVE); URINE BILIRUBIN NEGATIVE (NEGATIVE); URINE CASTS 1 /lpf (0-8); URINE COLOR YELLOW; URINE GLUCOSE (UA) NEGATIVE (NEGATIVE); URINE KETONE NEGATIVE (NEGATIVE); URINE LEUK ESTERASE 3+ (NEGATIVE); URINE NITRITE NEGATIVE (NEGATIVE); URINE PROTEIN NEGATIVE (NEGATIVE); URINE RBC 105 /hpf (0-4); URINE WBC 489 /hpf (0-5)
[2018-09-25] MEDS ORDERED: PHENAZOPYRIDINE HCL 100 MG TABLET (FP) ONE (03:04)
--- NOTE | 2018-09-25 03:45 | PDOC ---
History of Present Illness - General Chief Complaint: Urinary Problem Stated Complaint: UTI Time Seen by Provider: 09/25/18 00:57 - History of Present Illness Initial Comments: 09/25/18 03:40 Patient is a 33 year old female with h/o asthma, c/o "I have a UTI" paitent states dyuria, burning on urine since yesterday. States had discomfort since June. States after of her child in June and this would be her third treatment for UTI since then. States she has mild back pain, no abdominal pain, no nausea or vomiting, no fever, no chills. PMD: Dr. Hogan PMHX: as above PSOCHX: neg cig, drug, etoh ALL: NKDA GENERAL/CONSTITUTIONAL: No fever or chills. No weakness. No weight change. HEAD, EYES, EARS, NOSE AND THROAT: No change in vision. No ear pain or discharge. No sore throat. CARDIOVASCULAR: No chest pain or shortness of breath. RESPIRATORY: No cough, wheezing, or hemoptysis. GASTROINTESTINAL: No nausea, vomiting, diarrhea or constipation. No rectal bleeding. GENITOURINARY: (+) dysuria, frequency, or change in urination. MUSCULOSKELETAL: No joint or muscle swelling or pain. No neck or back pain. SKIN AND BREASTS: No rash or easy bruising. NEUROLOGIC: No headache, vertigo, loss of consciousness, or loss of sensation. PSYCHIATRIC: No depression or anxiety. ENDOCRINE: No increased thirst. No abnormal weight change. HEMATOLOGIC/LYMPHATIC: No anemia, easy bleeding, or history of blood clots. ALLERGIC/IMMUNOLOGIC: No hives or skin allergy. No latex allergy. GENERAL: The patient is awake, alert, and fully oriented, in no acute distress. HEAD: Normal with no signs of trauma. EYES: Pupils equal, round and reactive to light, extraocular movements intact, sclera anicteric, conjunctiva clear. ENT: Ears normal, nares patent, oropharynx clear without exudates. Moist mucous membranes. NECK: Normal range of motion, supple without lymphadenopathy, JVD, or masses. LUNGS: Breath sounds equal, clear to auscultation bilaterally. No wheezes, and no crackles. HEART: Regular rate and rhythm, normal S1 and S2 without murmur, rub. ABDOMEN: Soft, nontender, normoactive bowel sounds. No guarding, no rebound. No masses, mild Right CVAT EXTREMITIES: Normal range of motion, no edema. No clubbing or cyanosis. No cords, erythema, or tenderness. NEUROLOGICAL: Cranial nerves II through XII grossly intact. Normal speech, normal gait. PSYCH: Normal mood, normal affect. SKIN: Warm, Dry, normal turgor, no rashes or lesions noted. Past History - Past Medical History Allergies/Adverse Reactions: Allergies Allergy/AdvReac Type Severity Reaction Status Date / Time No Known Allergies Allergy Verified 09/25/18 00:57 Home Medications: Ambulatory Orders Oxycodone HCl 10 mg PO QID PRN 3 Days #12 tablet MDD 4 07/27/18 Ondansetron HCl [Zofran] 8 mg PO Q8H #30 tablet 08/18/18 Sulfamethoxazole/Trimethoprim [Bactrim Ds -] 1 tab PO BID #14 tablet 08/18/18 Phenazopyridine HCl [Pyridium -] 100 mg PO PC #6 tablet 09/25/18 levoFLOXacin [Levaquin -] 500 mg PO DAILY #7 tablet 09/25/18 Asthma: Yes (ALBUTEROL,SYMBICORT,SINGULAR) Cancer: No Cardiac Disorders: No COPD: No Diabetes: No HTN: No Seizures: No Thyroid Disease: No - Reproductive History (#): 1 Para: 1 Cervical CA: No Dysfunctional Uterine Bleeding: No (no vagina bleeding today) Ectopic : No Polycystic Ovaries: No Therapeutic (s) & number: No Uterine Fibroids: Yes - Immunization History Immunization Up to Date: Yes - Suicide/Smoking/Psychosocial Hx Smoking Status: No Smoking History: Never smoked Years of Tobacco Use: 0 Have you smoked in the past 12 months: No Number of Cigarettes Smoked Daily: 0 Cigars Per Day: 0 Information on smoking cessation initiated: No Hx Alcohol Use: No Drug/Substance Use Hx: No Substance Use Type: None Hx Substance Use Treatment: No *Physical Exam - Vital Signs Last Vital Signs Temp Pulse Resp BP Pulse Ox 97.9 F 72 19 115/64 100 09/24/18 23:55 09/24/18 23:55 09/24/18 23:55 09/24/18 23:55 09/24/18 23:55 ED Treatment Course - ADDITIONAL ORDERS Additional order review: Laboratory Results 09/25/18 02:01 Urine Color Yellow Urine Appearance Cloudy Urine pH 5.0 Ur Specific Nettie 1.018 Urine Protein Negative Urine Glucose (UA) Negative Urine Ketones Negative Urine Blood 3+ H Urine Nitrite Negative Urine Bilirubin Negative Urine Urobilinogen 1.0 Ur Leukocyte Esterase 3+ H Urine WBC (Auto) 489 Urine RBC (Auto) 105 Urine Casts (Auto) 1 U Epithel Cells (Auto) 0.6 Urine Bacteria (Auto) 6.9 Urine HCG, Qual Negative - Medications Given in the ED: ED Medications Discontinued Medications Generic Name Dose Route Start Last Admin Trade Name Fer PRN Reason Stop Dose Admin Ibuprofen 600 mg 09/25/18 01:46 09/25/18 03:09 Motrin - PO 09/25/18 01:47 600 mg ONCE ONE Administration Phenazopyridine HCl 200 mg 09/25/18 01:46 09/25/18 03:09 Pyridium - PO 09/25/18 01:47 200 mg ONCE ONE Administration Medical Decision Making - Medical Decision Making 09/25/18 03:40 Patient is a 33 year old female with h/o asthma, c/o "I have a UTI" paitent states dyuria, burning on urine since yesterday. States had discomfort since June. States after of her child in June and this would be her third treatment for UTI since then. States she has mild back pain, no abdominal pain, no nausea or vomiting, no fever, no chills. Symptoms consistent with UTI UA and culture pyridium Labs revealed noted to have large WBCs on urine we'll treat with Levaquin as culture in June was sensitive to Levaquin. I discussed the physical exam findings, ancillary test results and final diagnoses with the patient. I answered all of the patient's questions. The patient was satisfied with the care received and felt comfortable with the discharge plan and treatment plan. The Patient agrees to follow up with the primary care physician within 24-72 hours. *DC/Admit/Observation/Transfer Diagnosis at time of Disposition: Urinary tract infection Qualifiers: Urinary tract infection type: site unspecified Hematuria presence: without hematuria Qualified Code(s): N39.0 - Urinary tract infection, site not specified - Discharge Dispostion Disposition: HOME Condition at time of disposition: Stable - Prescriptions Prescriptions: levoFLOXacin [Levaquin -] 500 mg PO DAILY #7 tablet Phenazopyridine HCl [Pyridium -] 100 mg PO PC #6 tablet - Referrals Referrals: Bolivar Mackenzie MD [Primary Care Provider] - Edwin Wisdom MD [Staff Physician] - - Patient Instructions Printed Discharge Instructions: DI for Urinary Tract Infection (UTI) Additional Instructions: I discussed the physical exam findings, ancillary test results and final diagnoses with the patient. I answered all of the patient's questions. The patient was satisfied with the care received and felt comfortable with the discharge plan and treatment plan. The Patient agrees to follow up with the primary care physician within 24-72 hours. You have been having repeated UTIs since June he must follow-up with the urologist. - Post Discharge Activity
== END 2018-09-25 03:55 | disposition home or self-care (01) ==
LOC: JER 23:46
DX: N39.0 Urinary tract infection, site not specified (principal)
CPT/HCPCS: 81003; 84703; 87086; 99281-25

== ENCOUNTER 2020-05-05 15:18 | Emergency (ER) | payer OTHER ==
[2020-05-05 15:30] VITALS: BP 112/48; PULSE 76; BMI 25.8
[2020-05-05 15:35] VITALS: TEMP 98.1
[2020-05-05 17:44] LABS: BASO % 0.5 % (0-2.0); HEMATOCRIT 28.3 % (32.4-45.2); HEMOGLOBIN 8.4 GM/dL (10.7-15.3); LYMPH % 26.3 % (8-40); MCHC 29.7 g/dl (32.0-36.0); MEAN CELL VOLUME 63.4 fl (80-96); MEAN PLT VOLUME 9.5 fl (7.5-11.1); NEUT % 66.2 % (42.8-82.8); PLATELET COUNT 424 K/MM3 (134-434); RBC 4.46 M/mm3 (3.60-5.2); RDW 21.6 % (11.6-15.6); WHITE BLOOD COUNT 8.6 K/mm3 (4.0-10.0)
[2020-05-05 17:50] LABS: PH,URINE 6.5 (5.0-8.0); URINE APPEARANCE CLEAR; URINE BILIRUBIN NEGATIVE (NEGATIVE); URINE COLOR YELLOW; URINE GLUCOSE (UA) NEGATIVE (NEGATIVE); URINE KETONE NEGATIVE (NEGATIVE); URINE LEUK ESTERASE NEGATIVE (NEGATIVE); URINE NITRITE NEGATIVE (NEGATIVE); URINE PROTEIN NEGATIVE (NEGATIVE); URINE UROBILINOGEN 0.2 mg/dL (0.2-1.0)
[2020-05-05 17:52] LABS: MCH 18.9 pg (25.7-33.7)
[2020-05-05 17:53] LABS: HCG,QUALITATIVE URINE Negative
[2020-05-05 18:03] LABS: CHLORIDE 102 mmol/L (98-107); POTASSIUM 4.4 mmol/L (3.5-5.1); SODIUM 138 mmol/L (136-145)
[2020-05-05 18:05] LABS: CALCIUM 9.6 mg/dL (8.5-10.1)
[2020-05-05 18:06] LABS: ALBUMIN 4.1 g/dl (3.4-5.0); ANION GAP 8 MMOL/L (8-16); BLOOD UREA NITROGEN 14.7 mg/dL (7-18); CO2 29 mmol/L (21-32); GLUCOSE,RANDOM 85 mg/dL (74-106); MAGNESIUM 2.3 mg/dL (1.8-2.4)
[2020-05-05 18:09] LABS: CREATININE 0.8 mg/dL (0.55-1.3); SGOT/AST 24 U/L (15-37); SGPT/ALT 20 U/L (13-61)
[2020-05-05 18:11] LABS: BILIRUBIN,TOTAL 0.4 mg/dL (0.2-1); TOT PROT 8.5 g/dl (6.4-8.2)
[2020-05-05 18:12] LABS: ALK PHOS 68 U/L (45-117)
[2020-05-05 20:33] LABS: ANISOCYTOSIS 2+; MACROCYTOSIS 0; OVALOCYTE 0; PLATELET ESTIMATE NORMAL
== END 2020-05-05 19:58 | disposition home or self-care (01) ==
LOC: JER 15:18 → JERFT 15:18
DX: R07.89 Other chest pain (principal)
CPT/HCPCS: 36415; 71046-TC-FY; 73110-TC-RT-FY; 73130-TC-RT-FY; 80053; 81003; 82550; 82553; 83735; 84484; 84703; 85025; 85379; 87086; 93005; 93010; 99284-25